=== PATIENT | male | born 1985 | race Caucasian/White ===

== ENCOUNTER 2017-12-13 17:06 | Emergency (ER) | payer OTHER, SELFPAY ==
[2017-12-13 17:07] VITALS: BP 162/98; PULSE 106; RESP 16; TEMP 37.1; O2SAT 98; BMI 22.1
--- NOTE | 2017-12-13 17:14 | CT_ITS ---
STUDY: CT ABDOMEN AND PELVIS WITHOUT CONTRAST REASON FOR EXAM: Male, 32 years old. Right flank pain RADIATION DOSAGE (If Supplied By Facility): CTDIvol = ( 7.57 ) mGy, DLP = ( 368.86 ) mGycm TECHNIQUE: Transaxial images were obtained from the dome of the diaphragm to the symphysis pubis without oral contrast, and without intravenous contrast. Sagittal and coronal images were reconstructed. Individualized dose optimization techniques were used for this CT. COMPARISON: August 06, 2013 FINDINGS: The visualized lung bases are unremarkable. The visualized portions of the heart are within normal limits. Normal liver. Normal gallbladder and extrahepatic biliary system. Normal spleen. Normal pancreas. Normal bilateral adrenal glands. There is no evidence of gross renal obstruction however there does appear to be mild right hydroureter throughout its course to the level of the bladder although without evidence for ureteral calculus or other obstructing lesion. This could be due to reflux or recent passage of calculus. There is no evidence for hydronephrosis or left ureteral calculus. There is no renal mass given limited unenhanced nature of the study. Normal visualized stomach. Mild diffuse ileus pattern with fecal retention in the colon.. Diverticular changes in the descending and sigmoid colon without evidence for acute diverticulitis.. No evidence for acute appendicitis.. Normal abdominal aorta. Normal inferior vena cava. Normal retroperitoneum. Normal urinary bladder. Normal abdominal wall. Lumbar spine demonstrates mild spondylosis CT/Abdomen/Pelvis without Cont IMPRESSION: Mild right hydroureter of uncertain significance and etiology as there is no obstructing calculus or definitive evidence for obstructing lesion at the ureterovesical junction.. This could be due to recent passage of stone or reflux. Clinical correlation recommended Mild ileus with diffuse fecal retention in the colon. Diverticular changes of the descending and sigmoid colon without evidence for acute diverticulitis No evidence for acute appendicitis. Electronically Signed: Madhav De Anda MD at 18:27 EST , Service support ,
--- NOTE | 2017-12-13 17:31 | ED.VISSUMM ---
- ER Visit Summary Date of Service: 12/13/17 Chief Complaint: [] Upper quadrant pain on and off for 3 weeks History of Present Illness: The patient is a 32 M [] stabbing pain to the right upper quadrant for the last 3 weeks nothing makes it better or worse he has been able to eat and drink his bowel and bladder habits have been normal. He has a past history for a gastroenteritis related to being exposed to cow stool, general he has no past history other than chronic back pain for which he takes tramadol His bowel bladder habits have been unremarkable otherwise not been ill no fever no cough Physical Examination: [] His vital signs are unremarkable he is complaining of pain to the right upper quadrant there is some very mild pain here in urban guarding or megaly head neck chest unremarkable the abdomen is otherwise soft upper lower extremities unremarkable the back is unremarkable neurologically he is awake alert moving all 4 Test Results: [] Emergency Department Course and Treatment: [] IV fluids meds screening labs CT Studies are all generally unremarkable see those reports, the CT scan did show questionable right hydroureter no signs of obstruction or tumor or stone etiology of that is unclear see that report All the test results the patient I explained exact etiology of this sharp stabbing pain he has had is unclear he is going to see Dr. 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 Estrada he will be started on Naprosyn bland diet return for change in symptoms Treatment Plan: [] Disposition: [] Stable's home Impression: [] Right upper abdominal flank pain etiology unclear This note was generated with [employer] dictation software. It may contain incorrect words, spelling, and punctuation that were not noted in review of the chart prior to signing ED Disposition - Plan for ED Patient: Chief Complaint: Flank Pain Referrals: Madhav Butt MD [Primary Care Provider] -
[2017-12-13] MEDS: 0.9% Normal Saline 1,000 ML 250 ML IV (17:33)
[2017-12-13] MEDS: Ondansetron 4 MG/2 ML Vial IV (17:34)
--- NOTE | 2017-12-13 17:37 | ED.DCSUM_ITS ---
- ER Visit Summary Date of Service: 12/13/17 Chief Complaint: [] Upper quadrant pain on and off for 3 weeks History of Present Illness: The patient is a 32 M [] stabbing pain to the right upper quadrant for the last 3 weeks nothing makes it better or worse he has been able to eat and drink his bowel and bladder habits have been normal. He has a past history for a gastroenteritis related to being exposed to cow stool, general he has no past history other than chronic back pain for which he takes tramadol His bowel bladder habits have been unremarkable otherwise not been ill no fever no cough Physical Examination: [] His vital signs are unremarkable he is complaining of pain to the right upper quadrant there is some very mild pain here in urban guarding or megaly head neck chest unremarkable the abdomen is otherwise soft upper lower extremities unremarkable the back is unremarkable neurologically he is awake alert moving all 4 Test Results: [] Emergency Department Course and Treatment: [] IV fluids meds screening labs CT Studies are all generally unremarkable see those reports, the CT scan did show questionable right hydroureter no signs of obstruction or tumor or stone etiology of that is unclear see that report All the test results the patient I explained exact etiology of this sharp stabbing pain he has had is unclear he is going to see Dr. 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 Estrada he will be started on Naprosyn bland diet return for change in symptoms Treatment Plan: [] Disposition: [] Stable's home Impression: [] Right upper abdominal flank pain etiology unclear This note was generated with [employer] dictation software. It may contain incorrect words, spelling, and punctuation that were not noted in review of the chart prior to signing ED Disposition - Plan for ED Patient: Chief Complaint: Flank Pain Referrals: Madhav Butt MD [Primary Care Provider] -
[2017-12-13 17:52] LABS: Absolute Lymphocyte Count 1.93 X10^3/ul (0.83-4.51); Absolute Neutrophil Count 5.5 X10^3/uL (2.0-7.7); Basophil# 0.03 X10^3/uL; Basophil% 0.4 % (0-1); Eosinophil# 0.05 X10^3/uL; Eosinophils% 0.6 % (0-5); Hematocrit 44.1 % (40-54); Hemoglobin 14.7 g/dl (13.0-16.5); Lymphocyte # 1.93 X10^3/ul (4.0); Lymphocyte % 23.4 % (19-41); Mean Corp Hgb Conc 33.3 g/gl (32-36); Mean Corpuscular Hgb 29.5 pg (27.0-32.0); Mean Corpuscular Volume 88.4 fL (80-94); Mean Platelet Vol. 9.1 fl (6.2-12.0); Monocyte# 0.76 X10^3/uL; Monocyte% 9.2 % (0-10); Neutrophil # 5.46 X10^3/uL (2.7-7.7); Neutrophil % 66.2 % (47-70); Platelet Count 239 K/mm3 (150-450); RBC Distribution Width CV 12.3 % (11.6-14.6); RBC Distribution Width SD 39.1 fl (35.1-43.9); Red Blood Count 4.99 M/mm3 (4.6-6.2); White Blood Count 8.3 K/mm3 (4.4-11.0)
[2017-12-13 17:53] LABS: POSITIVE COUNT NO; POSITIVE DIFFERENTIAL NO; POSITIVE MORPHOLOGY NO
[2017-12-13 18:10] LABS: AST(SGOT) 16 U/L (15-37); Alanine Aminotransfer ALT/SGPT 35 U/L (16-61); Albumin, Serum 4.2 g/dL (3.2-5.0); Alkaline Phosphatase 81 U/L (45-117); BUN 16 mg/dL (7-18); BUN/Creat Ratio 17.8 RATIO (10-20); Calcium,Total 8.6 mg/dL (8.5-10.1); Cholesterol 187 mg/dL (200); EST Glomerular Filtration Rate 102 mL/min (>60); Est Glom Filt Rate - Afr Amer 124 mL/min (>60); Estimated Creatinine Clearance 128.08 ml/min; Globulin 2.9 g/dL (2.2-4.2); Glucose 117 mg/dL (74-106); Protein, Total 7.1 g/dL (6.4-8.2); Triglycerides 50 mg/dL
[2017-12-13 18:11] LABS: Anion Gap 8 (5-15); Chloride 103 mmol/L (98-107); High Density Lipoprotein 78 mg/dL; Potassium 3.5 mmol/L (3.5-5.1); Sodium Level 139 mmol/L (136-145); Very Low Density Lipoprotein 10 mg/dL (5-40)
[2017-12-13] MEDS: 0.9% Normal Saline 1,000 ML 999 ML IV (18:46)
[2017-12-13 19:08] LABS: Bacteria 0 SEEN /hpf (None Seen); Mucous, Urine 0 SEEN /hpf (<or=2+); Red Blood Cells-Urine 0 SEEN /hpf (0-5); Squamous Epithelial Cells - UA 0 SEEN /hpf (0-5); White Blood Cells 0 SEEN /hpf (0-5)
[2017-12-13 19:12] LABS: Color, Urine Straw (Yellow); Glucose, Dipstick Normal (Normal); Ketone-Dipstick Negative (Negative); Leukocyte Esterase-Dipstick Negative /ul (Negative); Nitrite-Dipstick Negative (Negative); Occult Blood-Urine Negative /ul (Negative); Protein-Dipstick Negative (Negative); Urine Bilirubin Dipstick Negative (Negative); Urine Clarity Clear (Clear); Urine Urobilinogen Normal (Normal); Urine pH 6.5 (5.0 - 8.0)
--- NOTE | 2017-12-13 19:51 | ED.DEP ---
ED Disposition - Plan for ED Patient: Chief Complaint: Flank Pain Instructions: ED Flank Pain Uncertain Cause Prescriptions: Naproxen [Naprosyn] 500 mg PO BID PRN #20 tab Referrals: Madhav Butt MD [Primary Care Provider] -
[2017-12-13 20:06] VITALS: BP 153/97; PULSE 89; RESP 16; O2SAT 99
== END 2017-12-13 20:07 | disposition home or self-care (01) ==
LOC: ED 17:47
PROVIDERS: Emergency Provider Emergency Medicine; Family Provider Family Medicine; PCP Family Medicine
DX: R10.11 Right upper quadrant pain (principal); M54.9 Dorsalgia, unspecified; G89.29 Other chronic pain; Z87.19 Personal history of other diseases of the digestive system
CPT/HCPCS: 74176; 80048; 80061; 80076; 81001; 85025; 96361; 96374; 96375; 99282; J7030; A4216; J2405

== ENCOUNTER 2018-04-05 10:03 | Day surgery (SDC) | payer OTHER, SELFPAY ==
[2018-04-05 10:22] VITALS: BP 138/82; PULSE 78; RESP 16; TEMP 37; O2SAT 98; BMI 21.3
--- NOTE | 2018-04-05 11:45 | RAD_ITS ---
STUDY: X-RAY - LUMBAR SPINE REASON FOR EXAM: Male, 32 years old. Spinal cord stimulator insertion. TECHNIQUE: 4 cone-down view(s) of the lumbar spine were obtained intraoperatively. COMPARISON: None FINDINGS: Fluoroscopic services provided for spinal cord stimulator insertion. RAD/Lumbar Spine 2 or 3 Views IMPRESSION: Fluoroscopic services provided for spinal cord stimulator placement. Electronically Signed: Darryl Ayala MD at 14:21 EDT Tel [phone], Service support ,
[2018-04-05] MEDS: Bupiv/Epi 0.5% Mpf 30 ML Vial (12:30)
[2018-04-05 13:41] VITALS: BP 115/77; BP 132/82; PULSE 86; RESP 18; TEMP 36.2; O2SAT 100
[2018-04-05 13:45] VITALS: BP 132/82; BP 133/95; PULSE 91; RESP 18; O2SAT 100
[2018-04-05 13:50] VITALS: BP 114/93; BP 132/82; PULSE 74; RESP 18; O2SAT 99
[2018-04-05 13:56] VITALS: BP 121/96; BP 132/82; PULSE 71; RESP 18; TEMP 36.3; O2SAT 99
[2018-04-05 15:05] VITALS: BP 132/82
== END 2018-04-05 15:05 | disposition home or self-care (01) ==
LOC: SDC 10:04 → AC 10:05
PROVIDERS: Family Provider Family Medicine; PCP Family Medicine; Visit Provider Anesthesiology Pain Medicine
PROC: (CPT 63685; principal; 2018-04-05 11:30)
DX: M96.1 Postlaminectomy syndrome, not elsewhere classified (principal); M54.9 Dorsalgia, unspecified; M79.606 Pain in leg, unspecified; F17.220 Nicotine dependence, chewing tobacco, uncomplicated
CPT/HCPCS: 63650 ×2; 63685; 95972; 72100; 76000; J7120

== ENCOUNTER → 2018-10-16 11:04 | Outpatient (CLI) | payer OTHER, SELFPAY ==
--- NOTE | 2018-10-16 11:12 | RAD_ITS ---
STUDY: X-RAY - CERVICAL SPINE REASON FOR EXAM: Male, 33 years old. NECK PAIN, HEADACHES TECHNIQUE: 2 view(s) of the cervical spine were obtained. COMPARISON: None FINDINGS: There is straightening of the normal cervical lordosis. There is multi-level endplate spondylosis. There is minimal multi-level degenerative disc disease with multilevel disc space narrowing. The soft tissue structures are unremarkable. RAD/Cerv Spine 2 or 3 Views IMPRESSION: Mild degenerative changes of the spine. Electronically Signed: Dudley Lipscomb MD at 8:14 EST Tel , Service support ,
--- NOTE | 2018-10-16 11:22 | RAD_ITS ---
STUDY: X-RAY - LUMBAR SPINE REASON FOR EXAM: Male, 33 years old. CHRONIC LOW BACK PAIN; H/O HERNIATION L5-S1; PAIN PUMP TECHNIQUE: 3 view(s) of the lumbar spine were obtained. COMPARISON: April 05, 2018 FINDINGS: There is straightening of the normal lumbar lordosis. There is a neurostimulator with electrodes at the thoracic level and cut off on this examination. Again noted is a moderate compression at T12 There is multilevel endplate spondylosis of the lumbar vertebrae. There is multi-level degenerative disc disease with multi-level disc space narrowing. There is stable moderate disc space narrowing at L5/S1 The soft tissue structures are unremarkable. RAD/Lumbar Spine 2 or 3 Views IMPRESSION: Degenerative changes of the spine. Electronically Signed: Dudley Lipscomb MD at 8:03 EST Tel , Service support ,
== END ==
LOC: RAD 11:07
PROVIDERS: Family Provider Family Medicine; PCP Family Medicine; Referring Provider Anesthesiology Pain Medicine; Visit Provider Anesthesiology Pain Medicine
DX: M54.2 Cervicalgia (principal); M54.9 Dorsalgia, unspecified
CPT/HCPCS: 72040; 72100

== ENCOUNTER 2019-07-31 14:00 | Outpatient (RCR) | payer OTHER, SELFPAY ==
--- NOTE | 2019-06-23 16:00 | HP.PTEVAL_ITS ---
Patient's Visit Information ANDRES CASTRO is a 34 year old M referred to Physical Therapy by Rubia Velazco MD with a diagnosis of LBP with LE radiculopathy. Date of Evaluation: 06/23/19 Physical Therapist: Luis Saab, PT, ATC - Visit Plan Frequency: 2-3x /Week Duration: 4 Weeks Plan: Core stab ex's, B LE strengthening, postural education, nustep, and HEP - Subjective Findings: Back surgery in 2014l has strimulator; surgery for heriation. L5, S1. Pain goes all the way down to ankle. Loses feeling in R leg; severe; @ rest: 4,5/10; @ worst 10/10. Pain is worse bending over, walking. Pain wakes up pt. Meloxicam, tramadol. Pickup things; limitations in picking up objects. MRI done; shows up, goes away. - Pain LBP Pain Intensity (Out of 10): 5 Pain Intensity Range: 10 - Objective Neuro: B LE sensation is WNL to lgiht touch. B patellar reflex= 2/3. MMT: B LE 4/5 throughout. L/S ROM: severely limited with L/S extension. All other ranges are moderately limited. Repeated movements: REIL peripaheralized sx's into R LE. SKTC and DKTC had no effect - Goals Goal 1:: Decrease LBP x 25-50% to aid with sleep Goal Time Frame: 4-6 Weeks Goal 2:: Increase B LE strength x 1 grade to aid with IADL's Goal Time Frame: 4-6 Weeks Goal 3:: Increase L/S ROM x 1 grade in all planes to aid with IADL's Goal Time Frame: 4-6 Weeks Goal 4:: I with HEP Goal Time Frame: 4-6 Weeks - Rehabilitation Potential Physical Therapy Diagnosis: Pt has LBP, limited L/S ROM, and R LE radiculopathy secondary to deg changes in the L/S Rehabilitation Potential: Good - Anticipated Interventions Patient/Client Instruction: Educate patient on: Condition, Plan of Care For the Purpose of:: To improve self management Therapeutic Exercise to Include: Strength training, Power training, Body mechanics, Postural training, Gait and locomotor training, Dynamic Lumbar Stabilization For the Purpose of:: To decrease pain, To increase ROM, To improve muscle performance and motor function Cryotherapy (ice pack, ice massage): Yes For the Purpose of:: To decrease pain Thank you for the opportunity to evaluate your patient. For Medicare and Medicare HMO plans, please review the plan of care and approve it. It will need to be FAXED BACK to us at [phone] for Medicare purposes. For Medicare only, by signing this I certify the plan of care. Please let me know if there are questions or concerns regarding this plan of care. Physician S ignature: Date:
--- NOTE | 2019-07-31 14:22 | HP.PTDCSUM ---
HP - PT D/C Summary It has been my pleasure to treat ANDRES CASTRO under orders from Rubia Velazco MD, for the diagnosis of LBP with LE radiculopathy for a total of 10 visit(s). Discharge Date: Please see the following information for a summary of their discharge status. - Subjective Subjective: I am achey today - Pain LBP Pain Intensity (Out of 10): 4 - Overall Improvement % Improvement: 25 - Objective Objective/Function: LBP is relatively unchanged. L/S ROM is limited by pain. LE strength is grossly 5/5 throughout. I with HEP - Goals Goal 1:: Decrease LBP x 25-50% to aid with sleep Goal Progress: Not Progressing Goal 2:: Increase B LE strength x 1 grade to aid with IADL's Goal Progress: Progressing Goal 3:: Increase L/S ROM x 1 grade in all planes to aid with IADL's Goal Progress: Not Progressing Goal 4:: I with HEP Goal Progress: Goal Met - Plan Plan: Discontinue, RTD - D/C Information If there are questions or concerns regarding this patient's physical therapy, please feel free to call me at [phone]. Thank you for the referral of this patient. Sincerely, Luis Saab, PT, ATC
== END 2019-07-31 14:51 | disposition home or self-care (01) ==
LOC: PT 14:00
PROVIDERS: Family Provider Family Medicine; PCP Family Medicine; Referring Provider Anesthesiology Pain Medicine; Visit Provider Anesthesiology Pain Medicine
DX: M54.9 Dorsalgia, unspecified (principal); M79.606 Pain in leg, unspecified
CPT/HCPCS: 97110; 97161; 97530

== ENCOUNTER → 2019-11-25 11:45 | Outpatient (CLI) | payer OTHER, SELFPAY ==
--- NOTE | 2019-11-25 11:52 | RAD_ITS ---
PROCEDURE: LUMBAR MYELOGRAM DATE OF EXAMINATION: November 25, 2019. INDICATION: Male, 34 years old. Low back pain. PHYSICIAN: Darryl Ayala M.D. CONSENT: The patient''s history and physical findings were reviewed. The lumbar myelogram procedure was discussed with the patient prior to signing a consent. SEDATION: Local anesthesia with 3 mL of 1% lidocaine was used. FLUOROSCOPY TIME (if supplied): (1:18) minutes/seconds Injection Information: 15 mL of Isovue-M 200 Number of images obtained: 4 TECHNIQUE: Digital fluoroscopy was used to identify a safe approach for the lumbar myelogram. The back was prepped and draped in usual fashion. Local anesthesia was utilized. Under fluoroscopic guidance a 22-gauge spinal needle was inserted into the spinal canal at the L4-5 level. Clear spinal fluid was seen. 15 mL of Isovue 200 M was injected into the spinal canal. There is good opacification of the spinal fluid. The nerve root sheaths are asymmetrically identified. There is no extradural defects. Spinal cord stimulator device is visualized. The patient tolerated the procedure well. A CT scan will follow. RAD/Lumbar Myelogram IMPRESSION: Normal lumbar myelogram. Electronically Signed: Darryl Ayala, at 13:09 EST , Service support ,
--- NOTE | 2019-11-25 11:53 | CT_ITS ---
STUDY: CT LUMBAR SPINE WITH INTRATHECAL CONTRAST (LUMBAR CT MYELOGRAM) REASON FOR EXAM: Male, 34 years old. Lumbar radiculopathy, myelogram RADIATION DOSAGE (If Supplied By Facility): CTDIvol = ( 13.82 ) mGy, DLP = ( 477.45 ) mGycm TECHNIQUE: Transaxial images were obtained from the T12 vertebra through the S1 vertebral level, following intrathecal administration of 15 ml of Isovue-M 200 contrast material, performed by Dr. Laguna. Please refer to this physicians technical notes for procedural details. Coronal and sagittal reconstructions were obtained. Individualized dose optimization techniques were used for this CT. COMPARISON: Comparison is made with mammogram done earlier in the day. FINDINGS: Normal lumbar lordosis. There is no substantial scoliosis. Normal vertebrae of the lumbar spine. Spinal cord stimulator is in situ. There is dependent layering of contrast material in the distal thecal sac. The conus medullaris terminates in a normal position at the L1-L2 level. There is no demonstrated cauda equina nerve root abnormality or intraspinal mass. L1-2: Normal endplates. Normal disc height and morphology. Normal bilateral facet joints. Normal central canal and bilateral lateral recesses. Normal bilateral intervertebral neural foramina. L2-3: Normal endplates. Normal disc height and morphology. Normal bilateral facet joints. Normal central canal and bilateral lateral recesses. Normal bilateral intervertebral neural foramina. L3-4: Normal endplates. Normal disc height and morphology. Normal bilateral facet joints. Normal central canal and bilateral lateral recesses. Normal bilateral intervertebral neural foramina. L4-5: Normal endplates. Normal disc height and morphology. Normal bilateral facet joints. Normal central canal and bilateral lateral recesses. Normal bilateral intervertebral neural foramina. L5-S1: Moderate degree of disc space narrowing and degeneration with anterior spondylosis. Normal visualized sacroiliac joints. Normal visualized paraspinous soft tissue structures. CT/Spine Lumbar WITH Contrast IMPRESSION: No significant abnormality is seen. Electronically Signed: Darryl Ayala, at 14:00 EST , Service support ,
[2019-11-25 12:02] VITALS: BP 139/90; PULSE 80; RESP 16; TEMP 36.8; O2SAT 98; BMI 20.5
[2019-11-25 13:35] VITALS: BP 145/82; PULSE 80; RESP 14; O2SAT 98
== END ==
LOC: RAD 11:47
PROVIDERS: Family Provider Family Medicine; PCP Family Medicine; Referring Provider Physician Assistant; Visit Provider Physician Assistant
DX: M51.16 Intervertebral disc disorders with radiculopathy, lumbar region (principal)
CPT/HCPCS: 62304; 72132; Q9965

== ENCOUNTER → 2020-04-13 11:47 | Outpatient (CLI) | payer OTHER, SELFPAY ==
[2019-11-25 12:02] VITALS: BMI 20.5
[2020-04-13 12:28] LABS: Amphetamine Urine VISTA NEGATIVE (<1000 ng/mL); Barbiturate Urine VISTA NEGATIVE (< 200 ng/mL); Benzodiazepine Urine VISTA NEGATIVE (< 200 ng/mL); Cocaine Urine VISTA NEGATIVE (< 300 ng/mL); Ecstacy Urine VISTA NEGATIVE (< 500 ng/mL); Methadone Urine VISTA NEGATIVE (< 300 ng/mL); PCP Urine VISTA NEGATIVE (< 25 ng/mL); THC Urine VISTA NEGATIVE (< 50 ng/mL); Vista UDS pH Range 7
== END ==
PROVIDERS: PCP Family Medicine; Referring Provider Anesthesiology Pain Medicine; Visit Provider Anesthesiology Pain Medicine
DX: F11.20 Opioid dependence, uncomplicated (principal)
CPT/HCPCS: 80307

== ENCOUNTER 2020-05-09 10:21 | Emergency (ER) | payer OTHER, SELFPAY ==
[2019-11-25 12:02] VITALS: BMI 20.5
[2020-05-09 10:22] VITALS: BP 141/87; PULSE 102; RESP 16; TEMP 36.7; O2SAT 95; BMI 20.5
[2020-05-09 10:25] VITALS: BP 141/87; PULSE 102; RESP 16; TEMP 36.7; O2SAT 95
--- NOTE | 2020-05-09 10:42 | CT_ITS ---
STUDY: CT ABDOMEN AND PELVIS WITH CONTRAST REASON FOR EXAM: Male, 34 years old. Diarrhea and low abdominal pain x 4 days. Spinal stimulator RADIATION DOSAGE (If Supplied By Facility): CTDIvol = ( 12.48 ) mGy, DLP = ( 794.02 ) mGycm TECHNIQUE: Transaxial images were obtained from the dome of the diaphragm to the symphysis pubis without oral contrast. IV 100mL Isovue-370 was administered. Sagittal and coronal images were reconstructed. Individualized dose optimization techniques were used for this CT. COMPARISON: 12/13/2017. FINDINGS: The visualized portions of lung bases demonstrate small granuloma in the left lower lobe and minimal atelectasis or scarring. The visualized portions of the heart are within normal limits. Normal liver. Normal gallbladder and extrahepatic biliary system. Normal spleen. Normal pancreas. Normal bilateral adrenal glands. Normal right kidney. Mild prominence of the left renal pelvis is again seen likely due to extrarenal pelvis. There is no evidence of hydronephrosis. Normal visualized stomach. The small bowel loops are normal in caliber. There is however fecal-like materials in small bowel loops. There is fecal retention. There is thickening of the descending colon and sigmoid colon extending to the rectum. There is no evidence of acute diverticulitis. The appendix is visualized and appears normal. Normal abdominal aorta. Normal inferior vena cava. Normal retroperitoneum. Normal urinary bladder. Pain management battery is seen in the right buttock region with wires extending to the lower thoracic spine. The osseous structures are unchanged. CT/Abdomen/Pelvis W IV Cont ONLY IMPRESSION: 1. Thickening of the colon extending from the descending colon to the rectum consistent with colitis. 2. No evidence of small bowel obstruction or acute appendicitis. Electronically Signed: Jerome Pickett MD at 13:28 EDT Tel , Service support ,
--- NOTE | 2020-05-09 10:43 | ED.VIS.GI ---
History of Present Illness Chief Complaint: Diarrhea Informant: Patient - Abdominal Pain/Flank Pain Onset: Days - 2 Context: Gradual Onset Timing: Continuous Quality: Cramping Location: - - lower/mid abd, nonlateralizing Current Severity: Moderate Maximum Severity: Moderate Worsened by: Nothing Relieved by: Nothing - Nausea/Vomiting/Emesis GI Symptom: Negative for: Nausea, Vomiting - Diarrhea/Melena/Hematochezia GI Symptom: Diarrhea. Negative for: Melena, Hematochezia Associated Symptoms: Negative for: Dysuria, Frequency, Hematuria, Urgency Narrative: Patient presenting with diffuse abdominal cramping and a lot of diarrhea for the past 2 days. More than 10 times per day. He states he went every hour overnight all night and ~like 7 this morning. It is nonbloody, non-melanotic. Watery. The last time he had this, it was 7 or 8 years ago, they saw what appeared to be a mass on the CT so they admitted him, he had a colonoscopy in the hospital, it ended up being colitis and not a mass. He was placed on antibiotics and it improved. He denies any recent antibiotics for anything. 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 Denies any recent camping or drinking ground water. No known sick contacts with similar symptoms, or recent COVID-19 infection contact that he knows of. He lives with his grandfather who is not ill with any of these symptoms. Prior similar symptoms: Yes - See above Recent Illness/Hospitalization: No - Past Medical History (1) Chronic low back pain with sciatica Status: Chronic Past Medical History - Allergies and Home Meds Allergies/Adverse Reactions: Allergies amoxicillin [Amoxicillin] Allergy (Verified 05/09/20 10:21) Rash hydrocodone [From Vicodin] Allergy (Verified 05/09/20 10:21) Shortness of breath,rash Primary Care Physician: Mike Estrada MD [Primary Care Provider] - Surgical History: - - Spinal stimulator placement Lives: With Family Smoking Status: Never smoker Drugs: None Review of Systems General: Reports: Fever - once, yest, 102, Malaise. Denies: Chills, Sweats Eyes: Denies: Visual changes - bilaterally, Diplopia ENT: Denies: Rhinorrhea, Sore throat Cardiovascular: Denies: Chest pain, Palpitations Respiratory: Denies: Dyspnea, Cough, Dyspnea on exertion Gastrointestinal: Reports: Abdominal pain, Diarrhea. Denies: Nausea, Vomiting, Melena, Hematochezia Genitourinary: Denies: Dysuria, Hematuria, Frequency Musculoskeletal: Denies: Back pain, Swelling, Extremity Pain Skin: Denies: Rash, Wounds Neurological: Denies: Headache, Weakness, Numbness Physical Exam Vital Signs/Narrative: Vital Signs Temp Pulse Resp BP Pulse Ox 05/09/20 10:25 98.1 F 102 H 16 141/87 H 95 05/09/20 10:22 98.1 F 102 H 16 141/87 H 95 Inital Vital Signs reviewed: Yes General: Well nourished, Well developed, No Acute Distress Head: Normocephalic, Atraumatic Eyes: Perrl, EOMI ENT: Moist mucous membranes, No rhinorrhea Neck: Supple, Nontender Cardiovascular: Regular rate, Regular rhythm, No murmurs Respiratory: No distress, CTA bilaterally, Chest nontender Abdomen: Soft, Nondistended, Normal bowel sounds, No masses, Tender - Across lower abdomen, worse in left lower quadrant, no other areas of tenderness. Negative for: Guarding, Rebound tenderness Back: Nontender, Normal Inspection. Negative for: CVA tenderness Extremities: Nontender, No edema. Negative for: Calf Tenderness Skin: Normal color, No rash, No Trauma Neurological: Alert, Oriented x3, Cranial nerves II-XII grossly intact, Normal Strength, Normal Sensation, Normal Gait Psychological: Normal affect, Normal Mood Diagnostic/Tx/Re-eval Impressions Abdomen/Pelvis CT 05/09/20 10:42 IMPRESSION: 1. Thickening of the colon extending from the descending colon to the rectum consistent with colitis. 2. No evidence of small bowel obstruction or acute appendicitis. Electronically Signed: Jerome Pickett MD at 13:28 EDT Tel , Service support , 05/09/20 10:42 Abdomen/Pelvis W IV Cont ONLY [CT] Stat Laboratory Results 05/09/20 05/09/20 11:03 11:03 WBC 6.8 RBC 5.23 Hgb 15.2 Hct 45.2 MCV 86.4 MCH 29.1 MCHC 33.6 RDW Std Deviation 37.4 RDW Coeff of Felicita 11.9 Plt Count 186 MPV 9.0 Immature Gran % (Auto) 0.100 Neut % (Auto) 68.7 Lymph % (Auto) 16.0 L [place] % (Auto) 14.7 H Eos % (Auto) 0.1 Baso % (Auto) 0.4 Absolute Neuts (auto) 4.7 Absolute Lymphs (auto) 1.09 Nucleated RBC % 0 Sodium 138 Potassium 3.8 Chloride 105 Carbon Dioxide 27.0 Anion Gap 6 BUN 8 Creatinine 0.89 Estim Creat Clear Calc 117.79 Est GFR (MDRD) Af Amer 124 Est GFR (MDRD) Non-Af 102 BUN/Creatinine Ratio 9.0 L Glucose 90 Calcium 8.6 Total Bilirubin 0.50 AST 9 L ALT 24 Alkaline Phosphatase 111 Total Protein 6.8 Albumin 3.7 Globulin 3.1 Albumin/Globulin Ratio 1.2 Lipase 87 - Medical Decision Making As above blood work is unremarkable including lack of leukocytosis, or liver enzyme elevation. He also appears to be remarkably hydrated for his much diarrhea as he has been having, he must of been drinking more fluids than he thought. He was treated with IV fluids, Bentyl, Toradol. This helped his discomfort. CT does show an area of focal colitis in the descending colon, no sign of a mass at this time. He can be treated as an outpatient, given his history I am happy to try him on antibiotics empirically, I will place him on just a 5-day course of Flagyl and Cipro, to see if that helps with this, I am limiting the duration of the treatment due to the possibility that these medications can make his diarrhea worse, which the patient understands. We are getting him a snack to eat in order to try to stimulate a gastrocolic reflex and have him provide a stool specimen prior to discharge, he will also be discharged on dicyclomine and he is comfortable with this plan of following up. ED Disposition - Plan for ED Patient: Disposition: Home or Assisted Living Diagnosis: Colitis Instructions: ED Gastroenteritis Report Pend Prescriptions: Dicyclomine HCl [Bentyl] 20 mg PO Q6H PRN #20 cap PRN Reason: abdominal pain Transmission Status: Pending to [facility] Ciprofloxacin [Cipro] 500 mg PO BID #10 tab Transmission Status: Pending to [facility] metroNIDAZOLE [Flagyl] 500 mg PO BID #10 tab Transmission Status: Pending to [facility] Referrals: Eh Sherman MD [STAFF PHYSICIAN] - 1-2 Weeks (call for appt for poss follow up colonoscopy) Mike Estrada MD [Primary Care Provider] - 3-5 Days if not improving (follow up with your PCP)
[2020-05-09] MEDS: Ketorolac 30 MG/ML Syringe IV (11:00)
[2020-05-09] MEDS: Dicyclomine 20 MG/2 ML Vial IM (11:00)
[2020-05-09] MEDS: 0.9% Normal Saline 1,000 ML 1000 ML IV (11:00)
[2020-05-09 11:09] LABS: Absolute Lymphocyte Count 1.09 X10^3/uL (0.83-4.51); Absolute Neutrophil Count 4.7 X10^3/uL (2.0-7.7); Basophil# 0.03 X10^3/uL; Basophil% 0.4 % (0-1); Eosinophil# 0.01 X10^3/uL; Eosinophils% 0.1 % (0-5); Hematocrit 45.2 % (40-54); Hemoglobin 15.2 g/dL (13.0-16.5); Lymphocyte # 1.09 X10^3/ul (4.0); Mean Corp Hgb Conc 33.6 g/dL (32-36); Mean Corpuscular Hgb 29.1 pg (27.0-32.0); Mean Corpuscular Volume 86.4 fL (80-94); Monocyte% 14.7 % (0-10); NRBC Flagged by Analyzer 0 % (0-5); Neutrophil # 4.66 X10^3/uL (2.7-7.7); Neutrophil % 68.7 % (47-70); Platelet Count 186 K/mm3 (150-450); RBC Distribution Width CV 11.9 % (11.6-14.6); RBC Distribution Width SD 37.4 fl (35.1-43.9); Red Blood Count 5.23 M/mm3 (4.6-6.2); White Blood Count 6.8 K/mm3 (4.4-11.0)
[2020-05-09 11:31] LABS: ALB/GLOB Ratio 1.2 RATIO (0.9-2.4); AST(SGOT) 9 U/L (15-37); Alanine Aminotransfer ALT/SGPT 24 U/L (16-61); Albumin, Serum 3.7 g/dL (3.2-5.0); Alkaline Phosphatase 111 U/L (45-117); Anion Gap 6 (5-15); BUN 8 mg/dL (7-18); Calcium,Total 8.6 mg/dL (8.5-10.1); Chloride 105 mmol/L (98-107); Creatinine, Serum 0.89 mg/dL (0.70-1.30); EST Glomerular Filtration Rate 102 mL/min (>60); Est Glom Filt Rate - Afr Amer 124 mL/min (>60); Estimated Creatinine Clearance 117.79 ml/min; Globulin 3.1 g/dL (2.2-4.2); Glucose 90 mg/dL (74-106); Lipase 87 U/L (73-393); Potassium 3.8 mmol/L (3.5-5.1); Protein, Total 6.8 g/dL (6.4-8.2); Sodium Level 138 mmol/L (136-145)
[2020-05-09 12:21] VITALS: BP 129/86; PULSE 82; RESP 18; O2SAT 98
[2020-05-09] MEDS: Ciprofloxacin 500 MG Tablet PO (14:02)
[2020-05-09] MEDS: metroNIDAZOLE 500 MG Tablet PO (14:02)
--- NOTE | 2020-05-10 12:48 | ED.RN ---
CALLED AND INFORMED PT OF STOOL PANEL RESULTS. PT VERBALIZED UNDERSTANDING
[2020-05-11 16:57] LABS: Giardia Lamblia, Stool EIA Negative (Negative)
== END 2020-05-09 14:04 | disposition home or self-care (01) ==
PROVIDERS: Emergency Provider Emergency Medicine; PCP Family Medicine
DX: K52.9 Noninfective gastroenteritis and colitis, unspecified (principal); M54.5 Low back pain; G89.29 Other chronic pain
CPT/HCPCS: 74177; 80053; 83690; 85025; 87329; 87506; 96361; 96372; 96374; 99284; J7030; Q9967; A4216

== ENCOUNTER 2020-05-09 19:21 | Emergency (ER) | payer OTHER, SELFPAY ==
[2020-05-09 10:22] VITALS: BMI 20.5
[2020-05-09 19:22] VITALS: BP 141/81; PULSE 104; RESP 18; TEMP 37.2; BMI 22.4
--- NOTE | 2020-05-09 19:59 | ED.VISSUMM ---
- ER Visit Summary Date of Service: 05/09/20 Chief Complaint: Abdominal pain seen earlier today. History of Present Illness: The patient is a 34 M history of prior colitis. Seen earlier today and worked up. Labs and CAT scan were done earlier today. Patient was discharged to home on both Cipro and Flagyl also Ultram for pain. He says not controlling his pain he want something stronger. He was admitted one other time for this but understands he does not need to be admitted at this time. Physical Examination: Young male no acute distress vital signs stable afebrile. H EENT exam unremarkable. Moist and pharynx. Neck nontender no lymphadenopathy. Lungs clear to auscultation bilaterally. Heart regular rhythm no murmur. Rate about 100. Abdomen soft. Nondistended. Normal bowel sounds. No peritoneal signs. Mildly tender. No hernia or mass. No signs of obstruction. Positive bowel sounds. Patient moving all 4 extremities. Calves are nontender without edema. Back nontender. Neurologically is awake alert. Test Results: I reviewed the patient's test from earlier today. They were basically unremarkable. He also had a CAT scan are reviewed. Emergency Department Course and Treatment: Discussed with the patient and his he understands he does not need to be admitted. He is not asking for that. He was just hoping for something more for pain. States when he was seen by general surgeon in the past he placed him on Vicodin which he states he had a rash to. Treatment Plan: Percocet for pain. Outpatient follow-up. Continue his current antibiotics. Disposition: discharge Impression: Acute abdominal pain with a history of colitis This note was generated with [employer] dictation software. It may contain incorrect words, spelling, and punctuation that were not noted in review of the chart prior to signing ED Disposition - Plan for ED Patient: Referrals: Mike Estrada MD [Primary Care Provider] -
--- NOTE | 2020-05-09 20:05 | ED.DEP ---
ED Disposition - Plan for ED Patient: Prescriptions: Oxycodone HCl/Acetaminophen [Percocet 5/325] 1 tab PO Q6H PRN PRN 4 Days #14 tab PRN Reason: Pain Or Fever Prescription Printed Referrals: Mike Estrada MD [Primary Care Provider] - Additional Instructions: Follow prior instructions. Percocet for pain. Up with your primary care physician and/or Dr. Ezekiel Sherman
[2020-05-09] MEDS: oxyCODONE 5 MG Tablet 10 MG PO (20:26)
== END 2020-05-09 20:29 | disposition home or self-care (01) ==
LOC: ED 19:44
PROVIDERS: Emergency Provider Emergency Medicine; PCP Family Medicine
DX: R10.9 Unspecified abdominal pain (principal); K52.9 Noninfective gastroenteritis and colitis, unspecified; Z79.899 Other long term (current) drug therapy
CPT/HCPCS: 99283

== ENCOUNTER 2021-09-10 13:02 | Emergency (ER) | payer OTHER, SELFPAY ==
[2021-09-10 13:04] VITALS: BP 136/85; PULSE 97; RESP 17; TEMP 37.3; O2SAT 97; BMI 22.8
--- NOTE | 2021-09-10 13:16 | EX.ED.DYSGE1 ---
HPI History of Present Illness Chief Complaint: Cough Informant: patient Narrative Narrative: 36-year-old male presenting to the emergency department with cough and fever. Patient got sick 6 days ago. He notes diarrhea nausea decreased appetite headache right-sided sore throat and chest soreness. He notes he has been able to get his fever down to around 99. He denies any significant long-term medical problems. He is non-smoker. He is not Covid vaccinated [facility] Medical History no medical history no medical history Home Medications NK 09/10/21 [History Last Taken Unknown] Allergy/AdvReac Type Severity Reaction Status Date / Time amoxicillin [Amoxicillin] Allergy Rash Verified 09/10/21 13:02 hydrocodone [From Vicodin] Allergy Shortness Verified 09/10/21 13:02 of breath,rash Surgical History (Updated 09/10/21 @ 13:31 by Johana Villa) Previous back surgery Social History (Updated 09/10/21 @ 13:[address] Zachary Almodovar, DO) Smoking Status: Never smoker substance use type: does not use ROS ROS ED Constitutional Constitutional ED: Reports chills and fever(s); Denies weight loss Eyes Eyes: Denies change in vision or diplopia ENT ENT ED: Reports rhinorrhea and sore throat; Denies ear pain Cardiovascular Cardiovascular: Denies chest pain, orthopnea, palpitations or racing heartbeat Respiratory/Chest Respiratory/Chest: Reports cough and dyspnea; Denies orthopnea Gastrointestinal Gastrointestinal: Reports diarrhea and nausea; Denies abdominal pain or vomiting Genitourinary Genitourinary ED: Denies dysuria, hematuria or urinary frequency Musculoskeletal Musculoskeletal: Reports myalgias; Denies arthralgias Integumentary Denies abscess or rash Neurologic Neurologic: Reports headache(s); Denies weakness Psychiatric Psychiatric: Denies anxiety, depression, suicidal ideation or suicidal thoughts Endocrine Endocrinology: Denies polydipsia, polyphagia or polyuria Allergic/Immunologic Allergic/Immunologic ED: Denies mouth swelling, tongue swelling or urticaria EXAM Physical Exam Const Vital Signs: 09/10/21 13:04 09/10/21 13:31 Temperature 99.2 F H Temperature Source Oral Pulse Rate 97 Respiratory Rate 17 Respiratory Effort Normal Respiratory Depth Normal Respiratory Pattern Normal Blood Pressure 136/85 H Blood Pressure Mean 102 Pulse Ox 97 Oxygen Delivery Method Room Air Positive well nourished and well developed General Appearance ED: well developed HEENT Reports normocephalic, head/scalp atraumatic and moist mucous membranes Eyes PERRL and EOMs intact bilaterally Neck no lymphadenopathy, supple and no JVD Resp normal respiratory effort and clear to auscultation bilaterally Cardio regular rate, regular rhythm and no murmurs GI normal to inspection, nondistended, normoactive bowel sounds and non-tender Palpation: soft Back/Spine no CVA tenderness and normal ROM Extremity normal to inspection General Extremety ED: Negative for edema General Extremity: Negative for edema Neuro oriented x3 and CN's II-XII intact bilaterally Sensorium / Orientation: alert Motor Exam: strength 5/5 throughout Psych mental status grossly normal Mood & Affect: Negative for depressed or tearful Skin no rashes or lesions noted and no wounds MDM MDM MDM Narrative Medical decision making narrative: My interpretation of the chest x-ray is no acute process. His influenza was negative a Covid is positive. Clinically the patient appears well. He will be discharged home with supportive care return if worsening or concerns Radiography Diagnostic Testing: Clinical Impression(s) from Imaging Studies Chest X-Ray 09/10/21 13:25 IMPRESSION: Normal x-ray examination of the chest. Electronically Signed: Jennifer Hardin MD at 13:49 EST Tel , Service support , Discharge Plan Triage Chief Complaint: Cough ED Provider: Zachary Almodovar Dx/Rx/DC Orders Clinical Impression: COVID-19 Instructions: Coronavirus Disease 2019 (COVID-19): Caring for Yourself or Others Prescriptions: No Action NK RF: 0 Primary Care Provider: Care Physician,No Primary Referrals: Amna Arroyo MD [STAFF PHYSICIAN] - As Needed (for primary care) Care Physician,No Primary [Primary Care Provider] - Disposition Disposition: Home, Self Care
--- NOTE | 2021-09-10 13:25 | RAD_ITS ---
STUDY: X-RAY CHEST REASON FOR EXAM: Male, 36 years old. cough Cough, fever, chills, upper abd pain and flank pain since sunday TECHNIQUE: Frontal portable view of the chest COMPARISON: No prior FINDINGS: The lungs are clear and expanded. There is no demonstrated pleural abnormality. Normal size heart. Normal mediastinum and laney. Normal visualized pulmonary arteries. Normal visualized aortic arch and descending thoracic aorta. Normal visualized thoracic spine. Normal visualized ribs, clavicles, and shoulders. There is spinal stimulation electrodes terminating in the midthoracic region. There is no demonstrated abnormality of the visualized soft tissue structures of the upper abdomen. RAD/Chest 1 View (Portable) IMPRESSION: Normal x-ray examination of the chest. Electronically Signed: Jennifer Hardin MD at 13:49 EST Tel , Service support ,
[2021-09-10] MEDS: Dicyclomine 10 MG Capsule 20 MG PO (13:27)
[2021-09-10] MEDS: Ondansetron ODT 4 MG Tablet PO (13:27)
[2021-09-10 14:25] VITALS: RESP 16; O2SAT 95
== END 2021-09-10 14:27 | disposition home or self-care (01) ==
PROVIDERS: Emergency Provider Emergency Medicine
DX: U07.1 COVID-19 (principal); R19.7 Diarrhea, unspecified; R11.0 Nausea
CPT/HCPCS: 71045; 87426; 87804; 99282

== ENCOUNTER 2024-06-19 14:34 | Emergency (ER) | payer SELFPAY ==
[2024-06-19 14:36] VITALS: BP 159/85; PULSE 97; RESP 14; TEMP 36.7; O2SAT 98; BMI 22.7
--- NOTE | 2024-06-19 15:05 | ED.VIS.GI ---
HPI HPI - GI History of Present Illness Chief Complaint: Abd Pain Detail of Chief Complaint: Intermittent abdominal pain for 9 months it is worse the past several days Informant: patient and spouse/S.O. Abdominal Pain/Flank Pain Onset: Month(s) Context: Sudden Onset Timing: Intermittent Quality: Aching and Dull Location: RUQ and RLQ Current Severity: Severe Maximum Severity: Severe Worsened by: Food Relieved by: Nothing Nausea/Vomiting/Emesis GI Symptom: Positive for Nausea and Vomiting Onset: Today Diarrhea/Melena/Hematochezia GI Symptom: Negative for Diarrhea, Melena or Hematochezia Associated Symptoms Associated Symptoms: Negative for Dysuria, Frequency, Hematuria or Urgency Narrative Narrative: Patient is a 39-year-old male. He has history of chronic back pain with a nerve stimulator and chronic abdominal pain that he has never sought medical attention for. He does have intolerance to greasy and fried foods. He states 10 years ago he was seen at [facility] and evaluated for gallbladder problems. He does not recall what the ultrasound may have revealed. He never followed up after that visit. He according to his 's had intolerance to greasy and fried foods for some time. He did have a doughnut, coffee with milk and other foods from the fair between 930 and 10:00. He had a large episode of emesis according to the . was the primary informant per his request. He denies fever, chills night sweats. He denies headache, visual, ocular auditory symptoms. He denies cardiac or respiratory symptoms. He states is not uncommon to have nausea and vomiting. There is no coffee-ground noted in the emesis or blood. He has had no black or maroon-colored stool. Prior similar symptoms: Yes Recent Illness/Hospitalization: No [facility] Home Medications ?Medication ?Instructions ?Recorded ?Last Taken ?Type NK 09/10/21 Unknown History morphine 15 mg immediate release 15 mg PO Q8H PRN pain 5 days #15 06/19/24 Unknown Rx tablet tabs ondansetron 4 mg disintegrating 4 mg PO Q8H PRN PRN Nausea #10 tabs 06/19/24 Unknown Rx tablet Allergy/AdvReac Type Severity Reaction Status Date / Time amoxicillin (Amoxicillin) Allergy Rash Verified 06/19/24 14:35 hydrocodone (From Vicodin) Allergy Shortness Verified 06/19/24 14:35 of breath,rash Surgical History Previous back surgery Social History (Updated 06/19/24 @ 15:[address] Virgil Keller MD) household members: spouse and children Smoking Status: Never smoker substance use type: does not use ROS ROS ED Constitutional Constitutional ED: Denies chills, fever(s), subjective or sweats ENT ENT ED: Denies ear pain, rhinorrhea or sore throat Cardiovascular Cardiovascular: Denies chest pain, palpitations or racing heartbeat Respiratory/Chest Respiratory/Chest: Denies cough, dyspnea or dyspnea on exertion Gastrointestinal Gastrointestinal: Reports abdominal pain, nausea and vomiting; Denies constipation or diarrhea Genitourinary Genitourinary ED: Denies dysuria, hematuria or urinary frequency Musculoskeletal Musculoskeletal: Denies arthralgias or myalgias Integumentary Denies Abrasions or rash Neurologic Neurologic: Denies headache(s), paresthesias or weakness Hematologic/Lymphatic Hematologic/Lymphatic: Denies easy bleeding or easy bruising EXAM Physical Exam Const Vital Signs: 06/19/24 14:36 06/19/24 16:35 Temperature 98.1 F Temperature Source Temporal Pulse Rate 97 74 Respiratory Rate 14 18 Blood Pressure 159/85 H 138/84 H Blood Pressure Mean 109 102 Pulse Ox 98 99 Oxygen Delivery Method Room Air Room Air Positive well nourished and well developed Constitutional Narrative: Patient appears uncomfortable. He appears unwell General Appearance ED: well developed; Negative for NAD or pallor HEENT Reports dry mucous membranes normocephalic and atraumatic Mouth ED: Yes dry mucous membranes Mouth: dry mucous membranes Eyes EOMs intact bilaterally General Eye ED: Negative for pale conjunctiva or scleral icterus Neck no lymphadenopathy and no JVD Resp normal respiratory effort and clear to auscultation bilaterally Cardio regular rate, regular rhythm, S1 normal heart sound, S2 normal heart sound and no murmurs GI non-distended; Negative for non-tender or no masses GI Narrative: Clinical Queen sign noted. Inspection: Negative for abdominal distention Auscultation: hypoactive bowel sounds Palpation: soft, tender RLQ and RUQ and guarding RUQ; Negative for rigid, hepatomegaly, splenomegaly, hernia, mass or pulsatile mass Back/Spine no CVA tenderness Extremity General Extremety ED: Negative for edema or tenderness General Extremity: Negative for edema Neuro CN's II-XII intact bilaterally and moves all extremities Sensorium / Orientation: alert Psych mental status grossly normal and thought process normal Skin no wounds General Skin Exam: Negative for jaundice or pallor Lesions: no lesions Rashes: no rashes MDM MDM MDM Narrative Medical decision making narrative: Differential diagnosis is abdominal pain unknown etiology, biliary disease, enteritis regional, malignancy. With history of intolerance to greasy fried foods having rich food today with nausea vomiting and worsening of his pain #1 concern is biliary disease. Will not be able to obtain ultrasound until 4:00 at the minimum if warranted since he ate between 930 and 10 AM this morning. According to he has not seen a doctor in approximately 7 years. Review of prior records the case patient has had morphine in the past with no reaction. Lab Data Attestation: I reviewed the patient's lab results. Lab results narrative: Count and differential normal. Hepatic profile normal. Lipase normal. Ultrasound reveals sonographic Queen sign with sludge in the gallbladder. The gallbladder is distended. Case was discussed with Dr. Carvajal who is on-call for surgery. Patient was discharged to home with appropriate home-going structures and follow-up with Dr. Carvajal. Labs: Laboratory Results - last 24 hr 06/19/24 14:46 WBC 9.3 RBC 5.19 Hgb 14.9 Hct 45.1 MCV 86.9 MCH 28.7 MCHC 33.0 RDW Std Deviation 37.4 RDW Coeff of Felicita 11.7 Plt Count 305 MPV 9.6 Immature Gran % (Auto) 0.200 Neut % (Auto) 62.5 Lymph % (Auto) 26.0 [place] % (Auto) 8.2 Eos % (Auto) 2.3 Baso % (Auto) 0.8 Absolute Neuts (auto) 5.8 Absolute Lymphs (auto) 2.42 Nucleated RBC % 0 Sodium 138 Potassium 3.6 Chloride 106 Carbon Dioxide 25.0 Anion Gap 7 BUN 13 Creatinine 0.91 Estim Creat Clear Calc 121.48 Est GFR (MDRD) Af Amer 117 Est GFR (MDRD) Non-Af 97 BUN/Creatinine Ratio 14.2 Glucose 93 Calcium 9.2 Total Bilirubin 0.60 Direct Bilirubin 0.15 AST 8 L ALT 28 Alkaline Phosphatase 102 Total Protein 7.4 Albumin 4.3 Globulin 3.1 Lipase 32 Radiography Diagnostic Testing: Clinical Impression(s) from Imaging Studies Gallbladder Ultrasound 06/19/24 16:19 IMPRESSION: 1. Distended gallbladder, no gallbladder wall thickening or shadowing calcifications however small amount of sludge is present and there is a positive sonographic Queen sign. No pericholecystic fluid. 2. Normal appearance of the liver and RIGHT kidney. Limited visualization of the pancreas. Electronically Signed: Eh Xie MD at 18:06 EDT , Discharge Plan Triage Chief Complaint: Abd Pain ED Provider: Virgil Keller Dx/Rx/DC Orders Clinical Impression: Biliary colic symptom, Sludge in gallbladder, Right upper quadrant abdominal pain with positive Queen Sign, Nausea & vomiting Instructions: ED Gallstones with Biliary Colic Prescriptions: New ondansetron 4 mg tablet,disintegrating 4 mg PO Q8H PRN PRN (Reason: Nausea) Qty: 10 0RF morphine 15 mg tablet 15 mg PO Q8H PRN (Reason: pain) 5 Days Qty: 15 0RF No Action NK Primary Care Provider: Care Physician,No Primary Referrals: Raymond Carvajal MD [Med Staff - Active Staff] - 5-7 Days Care Physician,No Primary [Primary Care Provider] - Activity Restrictions/Additional Instructions: Avoid greasy or fried foods. No butter, sour cream, cream cheese, rich desserts. Call Dr. Carvajal's office for outpatient follow-up and discuss treatment options Print Language: Belarusian Disposition Disposition: Home, Self Care
[2024-06-19] MEDS: 0.9% Normal Saline (1000mL) 1,000 ML 125 ML IV (15:11)
[2024-06-19] MEDS: Morphine 4 MG/ML Syringe IV (15:11)
[2024-06-19] MEDS: Ondansetron 4 MG/2 ML Vial IV (15:11)
[2024-06-19 15:33] LABS: Absolute Lymphocyte Count 2.42 X10^3/uL (0.83-4.51); Absolute Neutrophil Count 5.8 X10^3/uL (2.0-7.7); Basophil# 0.07 X10^3/uL; Basophil% 0.8 % (0-1); Eosinophil# 0.21 X10^3/uL; Eosinophils% 2.3 % (0-5); Hematocrit 45.1 % (40-54); Hemoglobin 14.9 g/dL (13.0-16.5); Lymphocyte # 2.42 X10^3/ul (0.83-4.51); Mean Corpuscular Hgb 28.7 pg (27.0-32.0); Mean Corpuscular Volume 86.9 fL (80-94); Mean Platelet Vol. 9.6 fl (6.2-12.0); Monocyte# 0.76 X10^3/uL; Monocyte% 8.2 % (0-10); NRBC Flagged by Analyzer 0 % (0-5); Neutrophil # 5.84 X10^3/uL (2.7-7.7); Neutrophil % 62.5 % (47-70); Platelet Count 305 K/mm3 (150-450); RBC Distribution Width CV 11.7 % (11.6-14.6); RBC Distribution Width SD 37.4 fl (35.1-43.9); Red Blood Count 5.19 M/mm3 (4.6-6.2); White Blood Count 9.3 K/mm3 (4.4-11.0)
[2024-06-19 15:58] LABS: AST(SGOT) 8 U/L (15-37); Alanine Aminotransfer ALT/SGPT 28 U/L (16-61); Albumin, Serum 4.3 g/dL (3.2-5.0); Alkaline Phosphatase 102 U/L (45-117); Anion Gap 7 (5-15); BUN 13 mg/dL (7-18); BUN/Creat Ratio 14.2 RATIO (10-20); Bilirubin, Direct 0.15 mg/dL (0.00-0.30); Calcium,Total 9.2 mg/dL (8.5-10.1); Chloride 106 mmol/L (98-107); Creatinine, Serum 0.91 mg/dL (0.70-1.30); EST Glomerular Filtration Rate 97 mL/min (>60); Est Glom Filt Rate - Afr Amer 117 mL/min (>60); Estimated Creatinine Clearance 121.48 ml/min; Globulin 3.1 g/dL (2.2-4.2); Glucose 93 mg/dL (74-106); Lipase 32 U/L (13-75); Potassium 3.6 mmol/L (3.5-5.1); Protein, Total 7.4 g/dL (6.4-8.2); Sodium Level 138 mmol/L (136-145)
--- NOTE | 2024-06-19 16:19 | US_ITS ---
INDICATION: Right upper quadrant pain -- Ate at 9:30 AM and vomited at 10 AM EXAMINATION: Ultrasound US Gallbladder (abdomen limited) TECHNIQUE: Lewis scale and color doppler imaging was performed of the gallbladder. COMPARISON: None. FINDINGS: LIVER: There is normal echotexture and has maximal dimension of 14.0 cm. No focal hepatic lesion. No intrahepatic biliary ductal dilatation. There is no free fluid. GALLBLADDER AND BILIARY TREE: Gallbladder is distended with maximal dimension of 7.3 cm. There is intraluminal sludge, no calcifications noted. Common bile duct measures 4 mm. SONOGRAPHIC QUEEN''S SIGN: Positive. PANCREAS: Limited visualization due to shadowing bowel gas however no focal abnormality noted. KIDNEYS GENERAL: There is no hydronephrosis. No shadowing calculus, focal lesion, or perinephric collection is demonstrated. RIGHT kidney: 12.2 x 5.7 x 6.4 cm VESSELS: Submitted longitudinal images of the intra-abdominal aorta demonstrate no gross abnormalities and are unremarkable. The IVC is patent. US/Gallbladder IMPRESSION: 1. Distended gallbladder, no gallbladder wall thickening or shadowing calcifications however small amount of sludge is present and there is a positive sonographic Queen sign. No pericholecystic fluid. 2. Normal appearance of the liver and RIGHT kidney. Limited visualization of the pancreas. Electronically Signed: Eh Xie MD at 18:06 EDT ,
[2024-06-19 16:35] VITALS: BP 138/84; PULSE 74; RESP 18; O2SAT 99
[2024-06-19 18:00] VITALS: BP 133/80; PULSE 85; RESP 18; O2SAT 97
[2024-06-19 18:33] VITALS: BP 133/80; PULSE 85; RESP 18; TEMP 36.2; O2SAT 97
== END 2024-06-19 18:34 | disposition home or self-care (01) ==
PROVIDERS: Emergency Provider Emergency Medicine; Referring Provider Emergency Medicine; Visit Provider Emergency Medicine
DX: K80.50 Calculus of bile duct without cholangitis or cholecystitis without obstruction (principal); K83.8 Other specified diseases of biliary tract; R11.2 Nausea with vomiting, unspecified; R10.11 Right upper quadrant pain
CPT/HCPCS: 76705; 80048; 80076; 83690; 85025; 96361; 96374; 96375; 99283; J7030; A4216; J2405

== ENCOUNTER 2024-06-23 12:13 | Observation (INO) | payer SELFPAY ==
[2024-06-23 12:13] VITALS: PULSE 98; RESP 16; TEMP 36.6; O2SAT 98; BMI 21.2
[2024-06-23] MEDS: Ondansetron 4 MG/2 ML Vial IV (13:00)
[2024-06-23] MEDS: Morphine 4 MG/ML Syringe IV (13:00)
[2024-06-23] MEDS: 0.9% Normal Saline (1000mL) 1,000 ML 1000 ML IV (13:00)
[2024-06-23 13:12] LABS: Absolute Lymphocyte Count 1.98 X10^3/uL (0.83-4.51); Absolute Neutrophil Count 3.7 X10^3/uL (2.0-7.7); Basophil# 0.04 X10^3/uL; Basophil% 0.6 % (0-1); Eosinophil# 0.12 X10^3/uL; Eosinophils% 1.9 % (0-5); Hematocrit 47.9 % (40-54); Hemoglobin 15.9 g/dL (13.0-16.5); Lymphocyte # 1.98 X10^3/ul (0.83-4.51); Lymphocyte % 30.6 % (19-41); Mean Corp Hgb Conc 33.2 g/dL (32-36); Mean Corpuscular Hgb 28.5 pg (27.0-32.0); Mean Corpuscular Volume 85.8 fL (80-94); Mean Platelet Vol. 9.3 fl (6.2-12.0); Monocyte# 0.64 X10^3/uL; Monocyte% 9.9 % (0-10); NRBC Flagged by Analyzer 0 % (0-5); Neutrophil # 3.68 X10^3/uL (2.7-7.7); Neutrophil % 56.8 % (47-70); Platelet Count 252 K/mm3 (150-450); RBC Distribution Width CV 11.5 % (11.6-14.6); RBC Distribution Width SD 35.8 fl (35.1-43.9); Red Blood Count 5.58 M/mm3 (4.6-6.2); White Blood Count 6.5 K/mm3 (4.4-11.0)
[2024-06-23 13:28] LABS: AST(SGOT) 10 U/L (15-37); Alanine Aminotransfer ALT/SGPT 25 U/L (16-61); Albumin, Serum 4.1 g/dL (3.2-5.0); Alkaline Phosphatase 98 U/L (45-117); Bilirubin, Direct 0.16 mg/dL (0.00-0.30); Globulin 3.2 g/dL (2.2-4.2); Lipase 32 U/L (13-75); Protein, Total 7.3 g/dL (6.4-8.2)
--- NOTE | 2024-06-23 13:42 | EX.ED.DYSGE1 ---
[facility] <Dr. Virgil Keller MD - Last Filed: 06/24/24 05:57> History of Present Illness Chief Complaint: Abd Pain Detail of Chief Complaint: Right upper quadrant abdominal pain Onset/Context/Timing Onset: Month(s) Context: Sudden Onset Timing: Waxes and wanes Quality: Right upper quadrant bowel pain after having jelly on toes. Location: Right upper quadrant Current Severity: Moderate Maximum Severity: Severe Worsened by: Palpation and eating Relieved by: Nothing Associated Symptoms Associated Symptoms: Nausea Narrative Narrative: Patient is a 39-year-old male. He was seen by me on June 20. He was diagnosed with biliary colic. Ultrasound revealed a distended gallbladder with a sonographic Queen sign and sludge. Case was discussed with Dr. Raymond Carvajal. Patient is scheduled to see Dr. Carvajal on Sunday. Patient states the pain became severe after toast and jelly. He did take pain medicine prescribed with no improvement. He presents now because of pain. Prior similar symptoms: Yes Recent Illness/Hospitalization: Yes PFSH <Dr. Virgil Keller MD - Last Filed: 06/24/24 05:57> [facility] Medical History (Updated 06/23/24 @ 18:[address] Yajaira Orozco DO) Chronic low back pain with sciatica COVID-19 Chronic low back pain Home Medications ?Medication ?Instructions ?Recorded ?Last Taken ?Type morphine 15 mg immediate release 15 mg PO Q8H PRN pain 5 days #15 06/19/24 06/23/24 Rx tablet tabs ondansetron 4 mg disintegrating 4 mg PO Q8H PRN PRN Nausea #10 tabs 06/19/24 06/23/24 Rx tablet Allergy/AdvReac Type Severity Reaction Status Date / Time amoxicillin (Amoxicillin) Allergy Rash Verified 06/23/24 12:53 hydrocodone (From Vicodin) Allergy Shortness Verified 06/23/24 12:53 of breath,rash Family History (Updated 06/23/24 @ 18:[address] Yajaira Orozco DO) Other Gallbladder disease Surgical History Previous back surgery Social History (Updated 06/23/24 @ 18:[address] Yajaira Orozco DO) household members: spouse and children Smoking Status: Never smoker alcohol intake: never substance use type: does not use ROS <Dr. Virgil Keller MD - Last Filed: 06/24/24 05:57> ROS ED Constitutional Constitutional ED: Denies chills, fever(s), subjective or sweats Cardiovascular Cardiovascular: Denies chest pain or palpitations Respiratory/Chest Respiratory/Chest: Denies cough, dyspnea or dyspnea on exertion Gastrointestinal Gastrointestinal: Reports abdominal pain and nausea; Denies diarrhea, melena or vomiting Genitourinary Genitourinary ED: Denies dysuria, hematuria or urinary frequency Musculoskeletal Musculoskeletal: Reports back pain and other Details: Pain does radiate to the right side scapular region. ; Denies arthralgias, myalgias or neck pain Integumentary Denies rash Neurologic Neurologic: Reports headache(s), paresthesias and weakness Hematologic/Lymphatic Hematologic/Lymphatic: Reports systems reviewed and no addt'l complaints, except as documented EXAM <Dr. Virgil Keller MD - Last Filed: 06/24/24 05:57> Physical Exam Const Vital Signs: 06/23/24 12:13 06/23/24 14:13 06/23/24 16:00 Temperature 98 F Temperature Source Temporal Pulse Rate 98 81 97 Respiratory Rate 16 16 18 Blood Pressure 121/75 H 156/87 H Blood Pressure Mean 90 110 Pulse Ox 98 98 97 Oxygen Delivery Method Room Air Room Air Room Air Positive well nourished and well developed Constitutional Narrative: Patient appears uncomfortable. General Appearance ED: well developed; Negative for pallor HEENT Reports dry mucous membranes HEENT Narrative: Head is atraumatic normocephalic. Ears normal. Mouth ED: Yes dry mucous membranes Mouth: dry mucous membranes Eyes PERRL and EOMs intact bilaterally General Eye ED: Negative for pale conjunctiva or scleral icterus Neck no lymphadenopathy and supple Resp normal respiratory effort and clear to auscultation bilaterally Cardio regular rate, regular rhythm, S1 normal heart sound, S2 normal heart sound and no murmurs GI non-distended and no masses; Negative for non-tender or hepatosplenomegaly GI Narrative: There is tenderness in the right upper quadrant with a clinical Queen sign. There is no peritoneal findings. Patient's abdomen is firm. It was firm on Sunday. His pain is much worse than it was on Sunday. Back/Spine no CVA tenderness Extremity normal to inspection Neuro oriented x3 and CN's II-XII intact bilaterally Sensorium / Orientation: alert Psych mental status grossly normal Skin no rashes or lesions noted, no wounds and skin turgor normal General Skin Exam: Negative for jaundice or pallor <Dr. Jesus Breen MD - Last Filed: 06/23/24 17:02> Physical Exam Const Vital Signs: 06/23/24 12:13 06/23/24 14:13 06/23/24 16:00 Temperature 98 F Temperature Source Temporal Pulse Rate 98 81 97 Respiratory Rate 16 16 18 Blood Pressure 121/75 H 156/87 H Blood Pressure Mean 90 110 Pulse Ox 98 98 97 Oxygen Delivery Method Room Air Room Air Room Air MDM <Dr. Virgil Keller MD - Last Filed: 06/24/24 05:57> MDM MDM Narrative Medical decision making narrative: Clinically patient appears dehydrated. He admits he has not had much to eat or drink. Blood work was repeated and will compare to Fridays results. Repeat imaging is not indicated in my opinion. History & Record Review Additional record(s) reviewed:: Prior ED visit and Prior labs Lab Data Attestation: I reviewed the patient's lab results. Lab results narrative: Laboratory work is again normal. Labs: Laboratory Results - last 24 hr 06/23/24 12:54 WBC 6.5 RBC 5.58 Hgb 15.9 Hct 47.9 MCV 85.8 MCH 28.5 MCHC 33.2 RDW Std Deviation 35.8 RDW Coeff of Felicita 11.5 L Plt Count 252 MPV 9.3 Immature Gran % (Auto) 0.200 Neut % (Auto) 56.8 Lymph % (Auto) 30.6 [place] % (Auto) 9.9 Eos % (Auto) 1.9 Baso % (Auto) 0.6 Absolute Neuts (auto) 3.7 Absolute Lymphs (auto) 1.98 Nucleated RBC % 0 Total Bilirubin 0.60 Direct Bilirubin 0.16 AST 10 L ALT 25 Alkaline Phosphatase 98 Total Protein 7.3 Albumin 4.1 Globulin 3.2 Lipase 32 Radiography Diagnostic Testing: Clinical Impression(s) from Imaging Studies Gallbladder Ultrasound 06/23/24 13:57 IMPRESSION: Positive sonographic Queen''s sign. No evidence of cholelithiasis. Electronically Signed: Darryl Ayala MD at 15:17 EDT , Abdomen/Pelvis CT 06/23/24 15:42 IMPRESSION: No evidence for small bowel obstruction , acute appendicitis or other acute abnormality Electronically Signed: Madhav De Anda MD at 16:30 EDT , <Dr. Jesus Breen MD - Last Filed: 06/23/24 17:02> MDM MDM Narrative Medical decision making narrative: Clinically patient appears dehydrated. He admits he has not had much to eat or drink. Blood work was repeated and will compare to Fridays results. Repeat imaging is not indicated in my opinion. Patient turned over to me from Dr. Keller. This is patient's second ER visit within the last 5 days. His labs today and ultrasound with gallbladder show no specific diagnosis. Patient, his and mother all present emergency department. They do not feel comfortable taking him home. I spoke with general surgery on-call Dr. Yossi Su they do not have a specific diagnosis. I am going to CT the patient he has not had a CAT scan for 4 years. And then have medicine evaluate him for possible admission and further workup since he is unable to keep food down and is having intractable nausea vomiting and pain. Repeat exam at 5 PM unchanged. I have already spoken to general surgery. I will have the hospitalist come down evaluate the patient for either admission for further evaluation or discharged home with outpatient follow-up he has appointment to see general surgery on Sunday. Lab Data Lab results narrative: Laboratory work is again normal. Ultrasound the gallbladder showed no acute abnormality. CT of the abdomen pelvis with IV contrast showed no acute abnormality is read by the radiologist. Labs: Laboratory Results - last 24 hr 06/23/24 12:54 WBC 6.5 RBC 5.58 Hgb 15.9 Hct 47.9 MCV 85.8 MCH 28.5 MCHC 33.2 RDW Std Deviation 35.8 RDW Coeff of Felicita 11.5 L Plt Count 252 MPV 9.3 Immature Gran % (Auto) 0.200 Neut % (Auto) 56.8 Lymph % (Auto) 30.6 [place] % (Auto) 9.9 Eos % (Auto) 1.9 Baso % (Auto) 0.6 Absolute Neuts (auto) 3.7 Absolute Lymphs (auto) 1.98 Nucleated RBC % 0 Total Bilirubin 0.60 Direct Bilirubin 0.16 AST 10 L ALT 25 Alkaline Phosphatase 98 Total Protein 7.3 Albumin 4.1 Globulin 3.2 Lipase 32 Radiography Diagnostic Testing: Clinical Impression(s) from Imaging Studies Gallbladder Ultrasound 06/23/24 13:57 IMPRESSION: Positive sonographic Queen''s sign. No evidence of cholelithiasis. Electronically Signed: Darryl Ayala MD at 15:17 EDT , Abdomen/Pelvis CT 06/23/24 15:42 IMPRESSION: No evidence for small bowel obstruction , acute appendicitis or other acute abnormality Electronically Signed: Madhav De Anda MD at 16:30 EDT , Discharge Plan Disposition Disposition: Acute Care Hospital [facility] Discharge Date/Time: 06/23/24 18:58
--- NOTE | 2024-06-23 13:57 | US_ITS ---
STUDY: ABDOMINAL ULTRASOUND - RIGHT UPPER QUADRANT REASON FOR VISIT: Male, 39 years old Repeat gallbladder requested by Dr. Su TECHNIQUE: Ultrasound evaluation of the right upper quadrant was performed with real-time and static collins-scale imaging. TECHNICAL QUALITY: Adequate. COMPARISON: Comparison is made with prior study dated June 19, 2024. FINDINGS: Liver: The liver measures 13.7 cm. There is normal echogenicity of the liver. The bile ducts are within normal limits. There is hepatic color flow. The direction of portal flow is hepatopetal. There is no demonstrated mass lesion. Gallbladder: Normal distended gallbladder. The gallbladder wall measures 2 mm. There is a positive sonographic Queen''s sign. There is no pericholecystic fluid. There are no gallstones. Common Bile Duct (C.B.D.): The common bile duct measures 3 mm. Pancreas: There is nonvisualization of the pancreas due to overlying bowel gas. Right Kidney: Normal size of the right kidney. The right kidney measures 12.4 cm x 4.9 cm x 5.7 cm. Normal renal cortex. The right cortex measures 1.5 cm. There is no demonstrated renal mass or cyst. There is no right hydronephrosis. US/Gallbladder IMPRESSION: Positive sonographic Queen''s sign. No evidence of cholelithiasis. Electronically Signed: Darryl Ayala MD at 15:17 EDT ,
[2024-06-23 14:13] VITALS: BP 121/75; PULSE 81; RESP 16; O2SAT 98
--- NOTE | 2024-06-23 15:42 | CT_ITS ---
STUDY: CT ABDOMEN AND PELVIS WITH CONTRAST REASON FOR EXAM: Male, 39 years old. right sided abd pain RADIATION DOSAGE (If Supplied By Facility): CTDIvol = ( 12.65 ) mGy, DLP = ( 639.89 ) mGycm TECHNIQUE: Transaxial images were obtained from the dome of the diaphragm to the symphysis pubis without oral contrast. IV 100mL Isovue-370 was administered. Sagittal and coronal images were reconstructed. Individualized dose optimization techniques were used for this CT. COMPARISON: May 09, 2020 FINDINGS: The visualized lung bases are unremarkable. The visualized portions of the heart are within normal limits. Normal liver. Normal gallbladder and extrahepatic biliary system. Normal spleen. Normal pancreas. Normal bilateral adrenal glands. Normal right kidney. Normal left kidney. Normal visualized stomach. Normal small intestine. Normal colon. Normal appendix is not clearly visualized however there are no secondary signs for acute appendicitis. Clinical correlation recommended Normal abdominal aorta. Normal inferior vena cava. Normal retroperitoneum. Nonspecific bladder distention. Normal abdominal wall. Lumbar spine demonstrates minor spondylosis CT/Abdomen/Pelvis W IV Cont ONLY IMPRESSION: No evidence for small bowel obstruction , acute appendicitis or other acute abnormality Electronically Signed: Madhav De Anda MD at 16:30 EDT ,
[2024-06-23 16:00] VITALS: BP 156/87; PULSE 97; RESP 18; O2SAT 97
[2024-06-23 17:27] VITALS: BP 119/72; PULSE 84; RESP 17; TEMP 37.2; O2SAT 98
--- NOTE | 2024-06-23 17:29 | PCM.HP.STD ---
HPI - General General Date of Admission: 06/23/24 Date of Service: 06/23/24 Chief Complaint: Intractable right upper quadrant pain/nausea and vomiting HPI Narrative ANDRES CASTRO, is a 39 M who presented to the emergency department at [facility] on 06/23/2024 due to ongoing issues with right upper quadrant pain and intractable nausea and vomiting. He has been having ongoing issues with right upper quadrant pain that have progressively getting worse over the last 9 months. Initially his symptoms only occurred after eating fatty meal like [employer] but as of late he is vomiting just about on anything including water and liquids. He was seen in the emergency department on 06/19/2024 for symptoms of biliary colic and his labs were overall unremarkable at that time however his ultrasound of his right upper quadrant revealed a positive sonographic Queen sign as well as sludge in the gallbladder with gallbladder distention. The case was discussed with Dr. Carvajal who was on-call for surgery at that time and follow-up appointment was made for 06/25/[address] Carvajal in his office for further evaluation for the need of cholecystectomy. Unfortunately his symptoms have been persistent to the point where he is not able to keep an toast or fluids and has had ongoing worsening pain so he represented to the emergency department today. At home, he is taking p.o. morphine for this and is on as needed Zofran for his nausea but not getting any relief. His last meal was Sunday evening and was smaller than his typical meals. His does report that he has been having coughing after he eats for significant period of time for some time as well. Vital signs on presentation showed a temperature of 98, heart rate 98, respiratory rate 16, blood pressure 121/75 and pulse ox was 98% on room air. CBC was completely unremarkable. Chemistry panel was unremarkable. LFTs were unremarkable with normal bilirubin normal AST and normal ALT. Lipase was normal at 32. Repeat ultrasound of the right upper quadrant was performed and showed a repeat positive sonographic Queen sign with no gallbladder distention, no gallbladders and no pericholestatic fluid with normal common bile duct dimensions. CT of the abdomen pelvis was also performed which demonstrated no significant acute abnormalities. Given his ongoing remarkable pain and nausea along with being unable to take any substantial p.o. food or liquid he was admitted to the hospital for further workup. [facility] Medical History (Updated 06/23/24 @ 18:[address] Yajaira Orozco DO) Chronic low back pain with sciatica COVID-19 Chronic low back pain no medical history Home Medications ?Medication ?Instructions ?Recorded ?Last Taken ?Type morphine 15 mg immediate release 15 mg PO Q8H PRN pain 5 days #15 06/19/24 06/23/24 Rx tablet tabs ondansetron 4 mg disintegrating 4 mg PO Q8H PRN PRN Nausea #10 tabs 06/19/24 06/23/24 Rx tablet Allergy/AdvReac Type Severity Reaction Status Date / Time amoxicillin (Amoxicillin) Allergy Rash Verified 06/23/24 12:53 hydrocodone (From Vicodin) Allergy Shortness Verified 06/23/24 12:53 of breath,rash Family History (Updated 06/23/24 @ 18:[address] Yajaira Orozco DO) Other Gallbladder disease Surgical History Previous back surgery Social History (Updated 06/23/24 @ 18:[address] Yajaira Orozco DO) household members: spouse and children Smoking Status: Never smoker alcohol intake: never substance use type: does not use ROS Review of Systems ROS Unobtainable: Denies due to encephalopathy, due to endotracheal tube, due to mental condition, due to mental status or other Constitutional Constitutional: Reports change in weight; Denies anorexia, chills, fatigue, fever(s), malaise, night sweats, weakness or other Eyes Eyes: Denies blurry vision, change in eye color, change in vision, discharge from eye(s), double vision, erythema, eye pain, loss of vision or other ENT HEENT: Denies abnormal hearing, dysphagia, ear pain, epistaxis, headache(s), hearing loss, nasal congestion, nasal discharge, post nasal drip, sinus pressure, sore throat or other Cardiovascular Cardiovascular: Denies chest pain, claudication, dyspnea on exertion, edema, lightheadedness, orthopnea, palpitations, paroxysmal nocturnal dyspnea, rapid heart rate, syncope or other Respiratory/Chest Respiratory/Chest: Denies cough, dyspnea, excessive phlegm production, hemoptysis, productive cough, shortness of breath at rest, shortness of breath with exertion, wheezing or other Gastrointestinal Gastrointestinal: Reports abdominal pain, nausea and vomiting; Denies coffee ground emesis, constipation, diarrhea, dyspepsia, hematemesis, hematochezia, loose stools, melena or other Genitourinary Genitourinary: Denies burning urination, difficulty urinating, dysuria, hematuria, nocturia, urinary frequency, urinary hesitancy, urinary incontinence, urinary urgency or other Musculoskeletal Musculoskeletal: Denies arthralgias, back pain, joint pain, joint stiffness, joint swelling, myalgias, neck pain or other Neurologic Neurologic: Denies abnormal gait, abnormal speech, confusion, disequilibrium, dizziness, focal weakness, headache(s), numbness, paresthesias, seizure-like activity, seizures, syncope, tingling, tremor(s) or other Psychiatric Psychiatric: Denies anxiety, depression, homicidal ideation, suicidal ideation or other Endocrine Endocrinology: Denies change in body appearance, cold intolerance, excessive sweating, heat intolerance, polydipsia, polyuria or other Hematologic/Lymphatic Hematologic/Lymphatic: Denies anemia, easy bleeding, easy bruising, lymphadenopathy or other Allergic/Immunologic Allergic/Immunologic: Denies rhinitis, hives, eczemia, asthma or other Vital Signs Vital Signs Vital Signs: 06/23/24 12:13 06/23/24 14:13 06/23/24 16:00 Temperature 98 F Temperature Source Temporal Pulse Rate 98 81 97 Respiratory Rate 16 16 18 Blood Pressure 121/75 H 156/87 H Blood Pressure Mean 90 110 Pulse Ox 98 98 97 Oxygen Delivery Method Room Air Room Air Room Air 06/23/24 17:27 Temperature 98.9 F Temperature Source Pulse Rate 84 Respiratory Rate 17 Blood Pressure 119/72 Blood Pressure Mean 87 Pulse Ox 98 Oxygen Delivery Method Weight Weight: 75.115 kg Body Mass Index (BMI) 21.2 Physical Exam Const alert, oriented x3 and no apparent distress; Negative for average body habitus, healthy appearing or well nourished Constitutional Narrative: 8, middle-aged, white male, sitting up in bed, currently appears comfortable, does not appear toxic, at bedside General Appearance: cooperative HEENT normocephalic, head/scalp atraumatic, hearing grossly normal bilaterally and moist oral mucous membranes HEENT Narrative: Dentition is good for age, Mallampati is 2, no thrush Resp normal respiratory effort, no retractions, no use of accessory muscles and clear to auscultation bilaterally Auscultation: Negative for rales, rhonchi or wheezes Cardio regular rate, regular rhythm, S1 normal heart sound, S2 normal heart sound, no murmurs, no rub, no gallops and no clicks GI normal to inspection, nondistended, normoactive bowel sounds, soft to palpation and non-tender Extremity no clubbing, cyanosis or edema Extremity Narrative: Pedal pulses are 2+, radial pulses are 2+ Neuro oriented x3, moves all extremities and no focal motor deficits Speech: speech normal Psych affect normal Psych Narrative: Very pleasant, interacts appropriately Results Lab / Micro Data 06/23/24 12:54 Labs: Laboratory Results - last 24 hr 06/23/24 12:54: WBC 6.5, RBC 5.58, Hgb 15.9, Hct 47.9, MCV 85.8, MCH 28.5, MCHC 33.2, RDW Std Deviation 35.8, RDW Coeff of Felicita 11.5 L, Plt Count 252, MPV 9.3, Immature Gran % (Auto) 0.200, Neut % (Auto) 56.8, Lymph % (Auto) 30.6, [place] % (Auto) 9.9, Eos % (Auto) 1.9, Baso % (Auto) 0.6, Absolute Neuts (auto) 3.7, Absolute Lymphs (auto) 1.98, Nucleated RBC % 0, Total Bilirubin 0.60, Direct Bilirubin 0.16, AST 10 L, ALT 25, Alkaline Phosphatase 98, Total Protein 7.3, Albumin 4.1, Globulin 3.2, Lipase 32 Imaging Radiology Impression Gallbladder Ultrasound 06/23/24 13:57 IMPRESSION: Positive sonographic Queen''s sign. No evidence of cholelithiasis. Electronically Signed: Darryl Ayala MD at 15:17 EDT , Abdomen/Pelvis CT 06/23/24 15:42 IMPRESSION: No evidence for small bowel obstruction , acute appendicitis or other acute abnormality Electronically Signed: Madhav De Anda MD at 16:30 EDT , Assessment & Plan Assessment/Plan (1) Right upper quadrant abdominal pain with positive Queen Sign: (2) Nausea & vomiting: (3) Biliary colic symptom: (4) Sludge in gallbladder: PLAN: Plan Chronic right upper quadrant pain with positive Queen sign/intractable nausea and vomiting -IV fluids with LR at 100 cc/h -Clear liquids as tolerated -As needed Zofran with Compazine for breakthrough -Scopolamine patch -As needed Dilaudid for right upper quadrant pain -As needed Toradol -Check HIDA scan if positive will need general surgery consultation and if negative consider GI consultation -IV PPI Poor p.o. intake -Suspect malnutrition -May need supplements when p.o. intake can be reestablished -Dietitian consultation Chronic low back pain -Continue outpatient follow-up DVT prophylaxis -Subcu Lovenox CODE STATUS -Full code Charges/Coding Visit Charges Inpatient E&M: 43053 Init Hosp L2
[2024-06-23 18:00] VITALS: BP 133/85; PULSE 79; RESP 18; O2SAT 99
[2024-06-23 19:36] VITALS: BMI 21.3
[2024-06-23 19:50] VITALS: BP 134/87; PULSE 75; RESP 18; TEMP 36.8; O2SAT 97
[2024-06-23] MEDS: Lactated Ringers 1,000 ML 100 ML IV (20:00)
[2024-06-23] MEDS: HYDROmorphone 1 MG/ML Syringe IV (20:01)
[2024-06-23] MEDS: Scopolamine 1mg/72hr Patch 1 PATCH TD (20:49)
[2024-06-24 02:20] VITALS: BP 135/75; PULSE 68; RESP 17; TEMP 36.5; O2SAT 97
[2024-06-24 02:21] VITALS: BP 135/75; PULSE 68; RESP 17; TEMP 36.5; O2SAT 97
[2024-06-24] MEDS: Ketorolac 15 MG/ML Vial IV (02:27)
[2024-06-24] MEDS: Lactated Ringers 1,000 ML 100 ML IV (05:47)
[2024-06-24 08:10] VITALS: BP 118/74; PULSE 53; RESP 18; TEMP 36.3; O2SAT 97
[2024-06-24 08:14] LABS: ALB/GLOB Ratio 1.2 RATIO (0.9-2.4); AST(SGOT) 9 U/L (15-37); Alanine Aminotransfer ALT/SGPT 20 U/L (16-61); Albumin, Serum 3.5 g/dL (3.2-5.0); Alkaline Phosphatase 86 U/L (45-117); Anion Gap 5 (5-15); BUN 14 mg/dL (7-18); BUN/Creat Ratio 15.7 RATIO (10-20); Calcium,Total 9.1 mg/dL (8.5-10.1); Chloride 105 mmol/L (98-107); Creatinine, Serum 0.89 mg/dL (0.70-1.30); EST Glomerular Filtration Rate 100 mL/min (>60); Est Glom Filt Rate - Afr Amer 121 mL/min (>60); Estimated Creatinine Clearance 116.33 ml/min; Globulin 2.8 g/dL (2.2-4.2); Glucose 89 mg/dL (74-106); Magnesium 2.1 mg/dL (1.6-2.6); Potassium 4.2 mmol/L (3.5-5.1); Protein, Total 6.3 g/dL (6.4-8.2); Sodium Level 139 mmol/L (136-145)
--- NOTE | 2024-06-24 08:30 | NM_ITS ---
CLINICAL: 39-year-old male with history of intractable right upper quadrant abdominal pain and nausea. RADIONUCLIDE HEPATOBILIARY SCINTIGRAPHY COMPARISON: Abdominal ultrasound report 06/23/2024, CT of the abdomen-pelvis report 06/23/2024 FINDINGS: Following the intravenous administration of 5.7 mCi of 99m Tc Mebrofenin, hepatobiliary images reveal: 1. Relatively prompt and homogeneous radiopharmaceutical concentration is noted by a normal sized liver. No parenchymal defects are identified. 2. Gallbladder activity is identified at 10 minutes post radiopharmaceutical administration. 3. Small intestinal tract is observed at 45 minutes following tracer injection. 4. Washout of the radiopharmaceutical by the hepatic parenchyma appears qualitatively normal. Cholecystokinin (0.02 ug/kg) was administered intravenously over a 30-minute period. The post CCK gallbladder ejection fraction calculated at 20 minutes following Cholecystokinin administration was noted to be 72.0 % (normal greater than 35%). During 30 minutes of post CCK imaging, there is no scintigraphic evidence of reflux of the radiotracer into the common hepatic duct or refilling of the gallbladder. There is evidence of post cholecystokinin duodenal-gastric reflux. NM/Hepatobilliary Img w/Pharm Int IMPRESSION: 1. A gallbladder ejection fraction calculated to be greater than 35% following the administration of Cholecystokinin makes the probability of functional hepatobiliary disease (gallbladder and/or sphincter of Oddi dyskinesia) and/or organic hepatobiliary disease (chronic acalculous cholecystitis and/or cystic duct syndrome) to be low. (Migue Hooker et al, Journal of Nuclear Medicine 32:1695, 1991). 2. 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 Electronically Signed: Eh Montes DO at 11:25 EDT ,
[2024-06-24 08:31] LABS: Absolute Lymphocyte Count 1.88 X10^3/uL (0.83-4.51); Basophil# 0.05 X10^3/uL; Basophil% 0.9 % (0-1); Eosinophil# 0.23 X10^3/uL; Hematocrit 42.9 % (40-54); Hemoglobin 14.3 g/dL (13.0-16.5); Lymphocyte # 1.88 X10^3/ul (0.83-4.51); Lymphocyte % 32.8 % (19-41); Mean Corp Hgb Conc 33.3 g/dL (32-36); Mean Platelet Vol. 9.6 fl (6.2-12.0); Monocyte# 0.56 X10^3/uL; Monocyte% 9.8 % (0-10); NRBC Flagged by Analyzer 0 % (0-5); Neutrophil % 52.2 % (47-70); Platelet Count 231 K/mm3 (150-450); RBC Distribution Width CV 11.5 % (11.6-14.6); RBC Distribution Width SD 36.7 fl (35.1-43.9); Red Blood Count 4.93 M/mm3 (4.6-6.2); White Blood Count 5.7 K/mm3 (4.4-11.0)
[2024-06-24] MEDS: HYDROmorphone 1 MG/ML Syringe IV ×2 (10:36→20:18)
[2024-06-24] MEDS: 0.9% Saline Lock 10 ML Syringe IV (10:37)
[2024-06-24] MEDS: Pantoprazole Sodium 40 MG in 0.9% Normal Saline (100mL MB+) 100 ML 330 MG IV (10:37)
--- NOTE | 2024-06-24 11:27 | PCM.PN.HOSP ---
Reason for Visit Reason for Visit: Diagnoses Calculus of bile duct without cholangitis or cholecystitis without obstruction (06/23/24) Other specified diseases of gallbladder (06/23/24) Right upper quadrant pain (06/23/24) Nausea with vomiting, unspecified (06/23/24) Other specified symptoms and signs involving the digestive system and abdomen (06/23/24) Subjective Subjective Saw patient at bedside later this morning after his HIDA scan was done, parents and girlfriend were present. Patient was mildly fatigued appearing but otherwise sitting up fairly comfortably in bed, in no acute distress. He tolerated the HIDA scan without issue. He had not tried any clear liquids yesterday. He denied any current pain or nausea but has had significant difficulty with keeping any food down over the past few days. Denies any other new concerns today. Objective Data Objective Data Vital Signs: Vital Signs Temp Pulse Resp BP Pulse Ox O2 Del Method 97.4 F L 53 L 18 118/74 97 Room Air 06/24/24 08:10 06/24/24 08:10 06/24/24 08:10 06/24/24 08:10 06/24/24 08:10 06/24/24 08:10 Oxygen Delivery Method Room Air Weight: 75.296 kg Body Mass Index (BMI) 21.3 Intake & Output: Intake and Output for Last 24 Hours 06/22/24 06/23/24 06/24/24 23:59 23:59 23:59 Intake Total 1000 / 1000 1371.66 / 1371.66 Balance 1000 / 1000 1371.66 / 1371.66 Lab / Micro Data 06/24/24 06:52 06/24/24 06:52 Labs: Laboratory Results - last 24 hr 06/23/24 12:54: WBC 6.5, RBC 5.58, Hgb 15.9, Hct 47.9, MCV 85.8, MCH 28.5, MCHC 33.2, RDW Std Deviation 35.8, RDW Coeff of Feilcita 11.5 L, Plt Count 252, MPV 9.3, Immature Gran % (Auto) 0.200, Neut % (Auto) 56.8, Lymph % (Auto) 30.6, [place] % (Auto) 9.9, Eos % (Auto) 1.9, Baso % (Auto) 0.6, Absolute Neuts (auto) 3.7, Absolute Lymphs (auto) 1.98, Nucleated RBC % 0, Total Bilirubin 0.60, Direct Bilirubin 0.16, AST 10 L, ALT 25, Alkaline Phosphatase 98, Total Protein 7.3, Albumin 4.1, Globulin 3.2, Lipase 32 06/24/24 06:52: WBC 5.7, RBC 4.93, Hgb 14.3, Hct 42.9, MCV 87.0, MCH 29.0, MCHC 33.3, RDW Std Deviation 36.7, RDW Coeff of Felicita 11.5 L, Plt Count 231, MPV 9.6, Immature Gran % (Auto) 0.300, Neut % (Auto) 52.2, Lymph % (Auto) 32.8, [place] % (Auto) 9.8, Eos % (Auto) 4.0, Baso % (Auto) 0.9, Absolute Neuts (auto) 3.0, Absolute Lymphs (auto) 1.88, Nucleated RBC % 0, Sodium 139, Potassium 4.2, Chloride 105, Carbon Dioxide 29.0, Anion Gap 5, BUN 14, Creatinine 0.89, Estim Creat Clear Calc 116.33, Est GFR (MDRD) Af Amer 121, Est GFR (MDRD) Non-Af 100, BUN/Creatinine Ratio 15.7, Glucose 89, Calcium 9.1, Phosphorus 3.0, Magnesium 2.1, Total Bilirubin 0.60, AST 9 L, ALT 20, Alkaline Phosphatase 86, Total Protein 6.3 L, Albumin 3.5, Globulin 2.8, Albumin/Globulin Ratio 1.2, TSH 2.650 Radiography Diagnostic Testing: Radiology Impression Gallbladder Ultrasound 06/23/24 13:57 IMPRESSION: Positive sonographic Qeuen''s sign. No evidence of cholelithiasis. Electronically Signed: Darryl Ayala MD at 15:17 EDT , Abdomen/Pelvis CT 06/23/24 15:42 IMPRESSION: No evidence for small bowel obstruction , acute appendicitis or other acute abnormality Electronically Signed: Madhav De Anda MD at 16:30 EDT , Hepatobiliary Scan Nuclear Medicine 06/24/24 08:30 IMPRESSION: 1. A gallbladder ejection fraction calculated to be greater than 35% following the administration of Cholecystokinin makes the probability of functional hepatobiliary disease (gallbladder and/or sphincter of Oddi dyskinesia) and/or organic hepatobiliary disease (chronic acalculous cholecystitis and/or cystic duct syndrome) to be low. (Migue Hooker et al, Journal of Nuclear Medicine 32:1695, 1990). 2. 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 Electronically Signed: Eh Montes, at 11:25 EDT , Physical Exam Const alert, oriented x3, no apparent distress and average body habitus General Appearance: cooperative and comfortable HEENT normocephalic, head/scalp atraumatic, hearing grossly normal bilaterally, nasal mucous membranes and turbinates normal and moist oral mucous membranes Eyes PERRL, EOMs intact bilaterally and conjunctivae normal Neck full ROM Chest inspection of chest normal Resp normal respiratory effort, normal air movement, no use of accessory muscles and clear to auscultation bilaterally Cardio regular rate, regular rhythm, no murmurs and peripheral pulses 2+ throughout GI normal to inspection, nondistended, normoactive bowel sounds, soft to palpation, non-tender and non-distended Back/Spine normal ROM Extremity normal to inspection, full ROM and no pedal edema Skin no rashes or lesions noted Neuro no focal motor deficits and no sensory deficits noted Speech: speech normal Psych mental status grossly normal Assessment & Plan Assessment/Plan (1) Right upper quadrant abdominal pain with positive Queen Sign: PLAN: Plan Patient is a 39-year-old male who presented [facility] ED on 06/23/2024 with ongoing right upper quadrant pain and intractable nausea and vomiting. 1. Chronic right upper quadrant pain with positive Queen sign and intractable nausea/vomiting ? GI consulted. Unclear etiology at this point. CT abdomen pelvis on admit showed no significant acute abnormalities. Right upper quadrant ultrasound showed a positive sonographic Queen sign but no gallbladder distention or other gallbladder issues. LFTs unremarkable. HIDA scan on 06/24 was unremarkable. Continue clear liquid diet for now, appreciate GI recs. Continue scopolamine patch, Zofran as needed, Dilaudid as needed and Toradol as needed.. Continue IV PPI for now. 2. Poor p.o. intake ? Nutrition consulted. Suspect malnutrition due to ongoing poor p.o. intake secondary to above. May need supplements when full p.o. intake can be reestablished. 3. Chronic low back pain ? Continue outpatient follow-up. DVT prophylaxis: Lovenox CODE STATUS: Full code, verified Expected disposition: Home, TBD Total clinical time spent by myself addressing the patient's medical issues, reviewing all the data, and collaborating with patient's care team: 35 minutes. Charges/Coding Visit Charges Inpatient E&M: 22376 Subs Hosp L2
[2024-06-24 14:14] VITALS: BP 123/77; PULSE 57; RESP 18; TEMP 36.6; O2SAT 97
--- NOTE | 2024-06-24 17:49 | EX.PCM.CON.G ---
HPI Consult Data Date of Consult: 06/24/24 HPI Narrative Reason for Consultation: Abdominal pain HPI Narrative: ANDRES CASTRO, is a 39 M who presented to the emergency department at [facility] on 06/23/2024 due to ongoing issues with right upper quadrant pain and intractable nausea and vomiting. He has been having ongoing issues with right upper quadrant pain that have progressively getting worse over the last 9 months. Initially his symptoms only occurred after eating fatty meal like Erickson[employer] but as of late he is vomiting just about on anything including water and liquids. He was seen in the emergency department on 06/19/2024 for symptoms of biliary colic and his labs were overall unremarkable at that time however his ultrasound of his right upper quadrant revealed a positive sonographic Queen sign as well as sludge in the gallbladder with gallbladder distention. The case was discussed with Dr. Carvajal who was on-call for surgery at that time and follow-up appointment was made for 06/25/[address] Carvajal in his office for further evaluation for the need of cholecystectomy. Unfortunately his symptoms have been persistent to the point where he is not able to keep an toast or fluids and has had ongoing worsening pain so he represented to the emergency department today. At home, he is taking p.o. morphine for this and is on as needed Zofran for his nausea but not getting any relief. His last meal was Sunday evening and was smaller than his typical meals. His does report that he has been having coughing after he eats for significant period of time for some time as well. Vital signs on presentation showed a temperature of 98, heart rate 98, respiratory rate 16, blood pressure 121/75 and pulse ox was 98% on room air. CBC was completely unremarkable. Chemistry panel was unremarkable. LFTs were unremarkable with normal bilirubin normal AST and normal ALT. Lipase was normal at 32. Repeat ultrasound of the right upper quadrant was performed and showed a repeat positive sonographic Queen sign with no gallbladder distention, no gallbladders and no pericholestatic fluid with normal common bile duct dimensions. CT of the abdomen pelvis was also performed which demonstrated no significant acute abnormalities. You underwent HIDA scan yesterday: COMPARISON: Abdominal ultrasound report 06/23/2024, CT of the abdomen-pelvis report 06/23/2024 FINDINGS: Following the intravenous administration of 5.7 mCi of 99m Tc Mebrofenin, hepatobiliary images reveal: 1. Relatively prompt and homogeneous radiopharmaceutical concentration is noted by a normal sized liver. No parenchymal defects are identified. 2. Gallbladder activity is identified at 10 minutes post radiopharmaceutical administration. 3. Small intestinal tract is observed at 45 minutes following tracer injection. 4. Washout of the radiopharmaceutical by the hepatic parenchyma appears qualitatively normal. Cholecystokinin (0.02 ug/kg) was administered intravenously over a 30-minute period. The post CCK gallbladder ejection fraction calculated at 20 minutes following Cholecystokinin administration was noted to be 72.0 % (normal greater than 35%). During 30 minutes of post CCK imaging, there is no scintigraphic evidence of reflux of the radiotracer into the common hepatic duct or refilling of the gallbladder. There is evidence of post cholecystokinin duodenal-gastric reflux. [facility] Medical History (Updated 06/23/24 @ 18:[address] Yajaira Orozco DO) Chronic low back pain with sciatica COVID-19 Chronic low back pain Medical History no medical history Home Medications ?Medication ?Instructions ?Recorded ?Last Taken ?Type morphine 15 mg immediate release 15 mg PO Q8H PRN pain 5 days #15 06/19/24 06/23/24 Rx tablet tabs ondansetron 4 mg disintegrating 4 mg PO Q8H PRN PRN Nausea #10 tabs 06/19/24 06/23/24 Rx tablet Allergy/AdvReac Type Severity Reaction Status Date / Time amoxicillin (Amoxicillin) Allergy Rash Verified 06/23/24 12:53 hydrocodone (From Vicodin) Allergy Shortness Verified 06/23/24 12:53 of breath,rash Family History (Updated 06/23/24 @ 18:[address] Yajaira Orozco DO) Other Gallbladder disease Surgical History Previous back surgery Social History (Updated 06/23/24 @ 18:[address] Yajaira Orozco DO) household members: spouse and children Smoking Status: Never smoker alcohol intake: never substance use type: does not use ROS Review of Systems ROS Unobtainable: Denies due to encephalopathy, due to endotracheal tube, due to mental condition, due to mental status or other Constitutional Constitutional: Reports change in weight; Denies anorexia, chills, fatigue, fever(s), malaise, night sweats, weakness or other Eyes Eyes: Denies blurry vision, change in eye color, change in vision, discharge from eye(s), double vision, erythema, eye pain, loss of vision or other ENT HEENT: Denies abnormal hearing, dysphagia, ear pain, epistaxis, headache(s), hearing loss, nasal congestion, nasal discharge, post nasal drip, sinus pressure, sore throat or other Cardiovascular Cardiovascular: Denies chest pain, claudication, dyspnea on exertion, edema, lightheadedness, orthopnea, palpitations, paroxysmal nocturnal dyspnea, rapid heart rate, syncope or other Respiratory/Chest Respiratory/Chest: Denies cough, dyspnea, excessive phlegm production, hemoptysis, productive cough, shortness of breath at rest, shortness of breath with exertion, wheezing or other Gastrointestinal Gastrointestinal: Reports abdominal pain, nausea and vomiting; Denies coffee ground emesis, constipation, diarrhea, dyspepsia, hematemesis, hematochezia, loose stools, melena or other Genitourinary Genitourinary: Denies burning urination, difficulty urinating, dysuria, hematuria, nocturia, urinary frequency, urinary hesitancy, urinary incontinence, urinary urgency or other Musculoskeletal Musculoskeletal: Denies arthralgias, back pain, joint pain, joint stiffness, joint swelling, myalgias, neck pain or other Neurologic Neurologic: Denies abnormal gait, abnormal speech, confusion, disequilibrium, dizziness, focal weakness, headache(s), numbness, paresthesias, seizure-like activity, seizures, syncope, tingling, tremor(s) or other Psychiatric Psychiatric: Denies anxiety, depression, homicidal ideation, suicidal ideation or other Endocrine Endocrinology: Denies change in body appearance, cold intolerance, excessive sweating, heat intolerance, polydipsia, polyuria or other Hematologic/Lymphatic Hematologic/Lymphatic: Denies anemia, easy bleeding, easy bruising, lymphadenopathy or other Allergic/Immunologic Allergic/Immunologic: Denies rhinitis, hives, eczemia, asthma or other Physical Exam Const alert, oriented x3 and no apparent distress; Negative for average body habitus, healthy appearing or well nourished Constitutional Narrative: 8, middle-aged, white male, sitting up in bed, currently appears comfortable, does not appear toxic, at bedside General Appearance: cooperative HEENT normocephalic, head/scalp atraumatic, hearing grossly normal bilaterally and moist oral mucous membranes HEENT Narrative: Dentition is good for age, Mallampati is 2, no thrush Resp normal respiratory effort, no retractions, no use of accessory muscles and clear to auscultation bilaterally Auscultation: Negative for rales, rhonchi or wheezes Cardio regular rate, regular rhythm, S1 normal heart sound, S2 normal heart sound, no murmurs, no rub, no gallops and no clicks GI normal to inspection, nondistended, normoactive bowel sounds, soft to palpation and non-tender Extremity no clubbing, cyanosis or edema Extremity Narrative: Pedal pulses are 2+, radial pulses are 2+ Neuro oriented x3, moves all extremities and no focal motor deficits Speech: speech normal Psych affect normal Psych Narrative: Very pleasant, interacts appropriately Lab / Micro Data 06/24/24 06:52 06/24/24 06:52 Labs: Laboratory Results - last 24 hr 06/24/24 06:52: WBC 5.7, RBC 4.93, Hgb 14.3, Hct 42.9, MCV 87.0, MCH 29.0, MCHC 33.3, RDW Std Deviation 36.7, RDW Coeff of Felicita 11.5 L, Plt Count 231, MPV 9.6, Immature Gran % (Auto) 0.300, Neut % (Auto) 52.2, Lymph % (Auto) 32.8, [place] % (Auto) 9.8, Eos % (Auto) 4.0, Baso % (Auto) 0.9, Absolute Neuts (auto) 3.0, Absolute Lymphs (auto) 1.88, Nucleated RBC % 0, Sodium 139, Potassium 4.2, Chloride 105, Carbon Dioxide 29.0, Anion Gap 5, BUN 14, Creatinine 0.89, Estim Creat Clear Calc 116.33, Est GFR (MDRD) Af Amer 121, Est GFR (MDRD) Non-Af 100, BUN/Creatinine Ratio 15.7, Glucose 89, Calcium 9.1, Phosphorus 3.0, Magnesium 2.1, Total Bilirubin 0.60, AST 9 L, ALT 20, Alkaline Phosphatase 86, Total Protein 6.3 L, Albumin 3.5, Globulin 2.8, Albumin/Globulin Ratio 1.2, TSH 2.650 Imaging Radiology Impression Hepatobiliary Scan Nuclear Medicine 06/24/24 08:30 IMPRESSION: 1. A gallbladder ejection fraction calculated to be greater than 35% following the administration of Cholecystokinin makes the probability of functional hepatobiliary disease (gallbladder and/or sphincter of Oddi dyskinesia) and/or organic hepatobiliary disease (chronic acalculous cholecystitis and/or cystic duct syndrome) to be low. (Migue Hooker et al, Journal of Nuclear Medicine 32:1695, 1991). 2. 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 Electronically Signed: Eh Montes DO at 11:25 EDT , Assessment & Plan Assessment/Plan (1) Right upper quadrant abdominal pain with positive Queen Sign: (2) Nausea & vomiting: (3) Biliary colic symptom: (4) Sludge in gallbladder: PLAN: Plan 39-year-old gentleman with no significant past medical history currently with intractable abdominal pain associated with nausea vomiting. The differential diagnosis does include gastroparesis, severe duodenal gastric reflux, Type III sphincter of Oddi syndrome, celiac disease, irritable bowel syndrome. Recommend upper endoscopy to evaluate upper GI tract along with biochemical workup. He was explained alternatives, risk, benefits include not withstanding bleeding, infection, sepsis, perforation, need for emergent urgent . He will have an ASA of 3. Charges/Coding Visit Charges Inpatient E&M: 93650 Init Hosp L3
[2024-06-24 20:17] VITALS: BP 119/82; PULSE 61; RESP 16; TEMP 36.7; O2SAT 98
[2024-06-24] MEDS: Scopolamine 1mg/72hr Patch 1 PATCH TD (22:40)
[2024-06-25] VITALS (10 sets, daily range): BP systolic 104–140; BP diastolic 60–122; PULSE 52–85; RESP 16–18; TEMP 36.1–36.8; O2SAT 93–99
--- NOTE | 2024-06-25 07:30 | EGD_PTH ---
PATIENT: ANDRES CASTRO LOC: MS3 U#:[id number] AGE/SX: 39/M ROOM: MN321 RE06/23/[address]: Dr. Chad Karimi DO : 1985 BED: 1 DIS: 06/26/2024 SPEC #: [id number] RECD: 06/25/24 09:33 STATUS: ASUNCION REDanielle #: [id number] EMILIA: 06/25/24 07:[address]: Troy Porras DEPT: SURGICAL PATHOLOGY RECD BY: Aaron Lainez ENTERED: 06/25/24 14:08 SP TYPE: EGD BIOPSY OT DR: Dr. Chad Karimi, DO Dr. Yajaira Orozco, DO No Primary Care Phys Tissues: A - Duodenum, NOS B - Gastric mucous membrane C - Esophagus, NOS Procedures: Special Stain Group I Surgery Specimen Level IV Alcian Blue/PAS (control) HEADER OPERATION: EGD with biopsy PRE-OP DIAGNOSIS: Right upper quadrant abdominal pain with positive Queen sign, nausea/vomiting, biliary colic symptom, sludge in gallbladder TISSUE SUBMITTED: A- Duodenum biopsy, B- Gastric body biopsy, C- Distal esophagus biopsy MICROSCOPIC DIAGNOSIS A. Duodenum, biopsy: Mild non-specific chronic inflammation. B. Gastric body, biopsy: Chronic gastritis . See comment. C. Distal esophagus, biopsy: Fragments of gastric mucosa with mild chronic inflammation. No evidence of goblet cell metaplasia. See comment. 06/26/2024 COMMENT B. The results of immunohistochemistry for Helicobacter pylori will be reported separately ([id number]). C. Alcian blue/PAS stain with matched control supports the above diagnosis. Case has been reviewed in consultation with Dr. Whitt who concurs with the above diagnosis. IDC:SJ MICROSCOPIC DESCRIPTION Slides are reviewed. GROSS DESCRIPTION A. Received in fixative is one container labeled with the patient's name and designated Duodenum biopsy. The specimen consists of multiple irregular fragments of light bell soft tissue that in aggregate measure 1.5 x 0.3 x 0.1 cm. The specimen is totally submitted in one cassette. B. Received in fixative is one container labeled with the patient's name and designated Gastric body biopsy. The specimen consists of multiple irregular fragments of light bell soft tissue that in aggregate measure 1.5 x 0.2 x 0.1 cm. The specimen is totally submitted in one cassette. C. Received in fixative is one container labeled with the patient's name and designated Distal esophagus biopsy. The specimen consists of multiple irregular fragments of light bell soft tissue that in aggregate measure 0.7 x 0.4 x 0.1 cm. The specimen is totally submitted in one cassette. SJ.mr 06/25/2024 TC:3 CPT:17977y0,63146
--- NOTE | 2024-06-25 07:30 | IMM_PTH ---
PATIENT: ANDRES CASTRO LOC: MS3 U#:[id number] AGE/SX: 39/M ROOM: KS321 RE06/23/[address]: Dr. Chad Karimi DO : 1985 BED: 1 DIS: 06/26/2024 SPEC #: [id number] RECD: 06/25/24 10:56 STATUS: ASUNCION REQ #: [id number] EMILIA: 06/25/24 07:[address]: Troy Porras DEPT: IMMUNOHISTOCHEMISTRY RECD BY: Dave Kirkpatrick ENTERED: 06/25/24 10:57 SP TYPE: IMMUNO OTHR DR: Dr. Chad Karimi, DO Dr. Yajaira Orozco, DO No Primary Care Phys Tissues: B - Gastric mucous membrane Procedures: H Pylori (initial) PHYSICIAN & INSTITUTION [place] [id number] SPECIMEN INFORMATION: Tissue Source: B- Gastric body biopsy Clinical Info: Right upper quadrant abdominal pain with positive Queen sign, nausea/vomiting, biliary colic symptom, sludge in gallbladder Specimen Number: [id number] CPT code: 78950 METHODOLOGY: Deparaffinized sections of prefer/formalin-fixed tissue or PAP/DQ stained slides are incubated with monoclonal/polyclonal antibodies/oligonucleotide probes. Localization is made via biotin free immunoperoxidase method. Appropriate controls are performed and reacted as expected. Results on target cell population are indicated in the following table: RESULTS: ANTIBODY / CLONE RESULT Block B H Pylori (polyclonal) negative These tests were developed and their performance characteristics determined by [facility]. They may not have been cleared or approved by the U.S. Food and Drug Administration. The FDA has determined that such clearance or approval is not necessary. The above immunohistochemical/dualISH markers are ordered and reviewed by the Pathologist. INTERPRETATION: B. Gastric body, biopsy: Negative for Helicobacter pylori organisms. PIERRE/ 06/25/2024
[2024-06-25] MEDS: Lactated Ringers 1,000 ML 15 ML IV (07:42)
--- NOTE | 2024-06-25 07:46 | PCM.PRE.AN2 ---
ASA Classification* ASA Classification ASA Classification: 2 Assessment & Plan Anesthesia* Anesthesia Assessment Anesthesia Assessment: Discussed sedation and/or anesthesia options, risks, benefits, and alternatives with patient/parents/legal guardian/POA. Questions invited. The patient/parents/legal guardian/POA seems to understand and agrees to proceed with anesthesia plan. Reviewed the physical assessment, medical history, allergy history and patient home medications list prior to surgery/procedure/anesthetic and documented any changes. Performed airway and anesthesia risk assessments. Anesthesia Type Anesthesia Type: MAC Anesthesia Focused Assessment* Temperature: 97.8 F Pulse Rate: 52 Blood Pressure: 104/60 Respiratory Rate: 16 Pulse Ox: 98 Airway Assessment Mouth opens: >3 cm Mallampati Score: II Focused Labs Anesthesia Preop lab: CBC WBC 5.7 K/mm3 (4.4-11.0) 06/24/24 06:52 RBC 4.93 M/mm3 (4.6-6.2) 06/24/24 06:52 Hgb 14.3 g/dL (13.0-16.5) 06/24/24 06:52 Hct 42.9 % (40-54) 06/24/24 06:52 Plt Count 231 K/mm3 (150-450) 06/24/24 06:52 CHEMISTRY Potassium 4.2 mmol/L (3.5-5.1) 06/24/24 06:52 Sodium 139 mmol/L (136-145) 06/24/24 06:52 Magnesium 2.1 mg/dL (1.6-2.6) 06/24/24 06:52 Phosphorus 3.0 mg/dL (2.5-4.9) 06/24/24 06:52 BUN 14 mg/dL (7-18) 06/24/24 06:52 Creatinine 0.89 mg/dL (0.70-1.30) 06/24/24 06:52 Glucose 89 mg/dL (74-106) 06/24/24 06:52 TSH 2.650 uIU/mL (0.358-3.740) 06/24/24 06:52 COAG PT 13.0 SECONDS (11.9-14.4) 08/06/13 11:54 Pre-Assessment Diagnosis/Proposed Procedure Planned Operative Procedure(s): EGD Anesthesia History 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 When Was Last Pacemaker Check QUESTION #4 FULL TEXT: You/Your Family Experience fever (hyperthermia) with Anesthesia Last Oral Intake Last Oral intake: Last Oral Intake NPO since Meds taken in AM with sips of water? 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 Has anyone observed you stop No 06/23/24 19:36 breathing during sleep? STOP Results Negative 06/23/24 19:36 QUESTION #5 FULL TEXT : Do you snore loudly (louder than talking or can be heard through closed doors)? 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 Specify any problems Hx of Preganancy in last 3 N/A 06/23/24 19:36 Months Nurse Filling Out Transfusion LSMITH 06/23/24 19:36 & Questions: Date: 06/23/24 06/23/24 19:36 Time: 19:42 06/23/24 19:36 Patient unable to answer at this time (ie. 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: /Reproductive Hx- brake operator heavy duty Hx Now Gestational Age (in weeks): EDC: Hx Hx Para Hx Section SAB Active Medications Active Medications: Current Medications Generic Name Dose Route Start Last Admin Trade Name Freq PRN Reason Stop Dose Admin Enoxaparin Sodium 40 mg 06/24/24 10:00 06/24/24 11:22 Enoxaparin 40 Mg/0.4 Ml Syringe SC Not Given DAILY GARDENIA Hydromorphone HCl 0.5 - 1 mg 06/23/24 19:34 06/24/24 20:18 Hydromorphone 1 Mg/Ml Syringe IV 1 mg Q3H PRN PRN Administration Pain Score 6-10 Pantoprazole Sodium 40 mg/ 110 mls @ 330 mls/hr 06/24/24 10:00 06/24/24 10:57 Sodium Chloride IV Infused Q24 GARDENIA Infusion Lactated Ringer's 1,000 mls @ 15 mls/hr 06/25/24 07:45 06/25/24 07:42 IV 15 mls/hr .Q48H GARDENIA Administration Ketorolac Tromethamine 15 mg 06/23/24 19:34 06/24/24 02:27 Ketorolac 15 Mg/Ml Vial IV 06/25/24 19:35 15 mg Q6H PRN PRN Administration Pain Score 1-10 Melatonin 3 mg 06/23/24 19:34 Melatonin 3 Mg Tablet PO QHS PRN PRN INSOMNIA Ondansetron HCl 4 mg 06/23/24 19:34 Ondansetron 4 Mg/2 Ml Vial IV Q8H PRN PRN NAUSEA/VOMITING Prochlorperazine Edisylate 5 mg 06/23/24 19:34 Prochlorperazine 10 Mg/2 Ml Vial IV Q4H PRN PRN Breakthrough nausea/vomiting Scopolamine HBr 1 patch 06/23/24 19:34 06/24/24 22:40 Scopolamine 1mg/72hr Patch TD 1 applic Q3D GARDENIA Administration Senna/Docusate Sodium 2 tablet 06/23/24 19:34 Senna/Docusate Sodium 1 Tablet PO BID PRN PRN Constipation Sodium Chloride 10 - 40 ml 06/23/24 19:48 06/24/24 10:37 0.9% Saline Lock 10 Ml Syringe IV 10 ml UD PRN Administration SALINE FLUSH PFSH Medical History Chronic low back pain with sciatica COVID-19 Chronic low back pain Medical History no medical history Home Medications ?Medication ?Instructions ?Recorded ?Last Taken ?Type morphine 15 mg immediate release 15 mg PO Q8H PRN pain 5 days #15 06/19/24 06/23/24 Rx tablet tabs ondansetron 4 mg disintegrating 4 mg PO Q8H PRN PRN Nausea #10 tabs 06/19/24 06/23/24 Rx tablet Allergy/AdvReac Type Severity Reaction Status Date / Time amoxicillin (Amoxicillin) Allergy Rash Verified 06/23/24 12:53 hydrocodone (From Vicodin) Allergy Shortness Verified 06/23/24 12:53 of breath,rash Family History Other Gallbladder disease Surgical History Previous back surgery Social History household members: spouse and children Smoking Status: Never smoker alcohol intake: never substance use type: does not use Review of Systems (Anesthesia) ROS Narrative System reviewed and no additional complaints, except as documented.
--- NOTE | 2024-06-25 08:09 | OP.CCLET_ITS ---
06/25/2024 No Primary Care Physician Re : Upper GI endoscopy procedure for Sheng Porras Dear Care Physician This procedure was performed on Tuesday, June 25, 2024. My impressions and recommendations are as follows: Impressions : - Z-line irregular, 40 cm from the incisors. Biopsied. - Erythematous mucosa in the gastric body. Biopsied. - Chronic duodenitis. Biopsied. Recommendations : - [facility]. - Resume previous diet. - Continue present medications. - Await pathology results. My findings are described in the full procedure note, which is enclosed. If I can be of further assistance, please feel free to contact me at . Sincerely, Troy Porras, 06/25/2024 8:09:00 AM This report has been signed electronically.
--- NOTE | 2024-06-25 08:09 | OP.EGD_ITS ---
Patient Name: Sheng Porras Procedure Date: 06/25/2024 7:52 AM Date of : 1985 Age: 39 Procedure: Upper GI endoscopy Indications: Epigastric abdominal pain, Abdominal pain in the right upper quadrant Providers: Troy Porras DO Medicines: Monitored Anesthesia Care Patient Profile: This is a 39 year old male. Refer to note in patient chart for documentation of history and physical. Patient has symptoms of chronic abdominal cramping, acute right upper quadrant abdominal pain and acute right lower quadrant abdominal pain. Complications: No immediate complications. Procedure: Pre-Anesthesia Assessment: - Prior to the procedure, a History and Physical was performed, and patient medications and allergies were reviewed. The patient is competent. The risks and benefits of the procedure and the sedation options and risks were discussed with the patient. All questions were answered and informed consent was obtained. Patient identification and proposed procedure were verified by the physician in the pre-procedure area. Mental Status Examination: alert and oriented. Airway Examination: normal oropharyngeal airway and neck mobility. Respiratory Examination: clear to auscultation. CV Examination: normal. Prophylactic Antibiotics: The patient does not require prophylactic antibiotics. Prior Anticoagulants: The patient has taken no anticoagulant or antiplatelet agents. ASA Grade Assessment: II - A patient with mild systemic disease. After reviewing the risks and benefits, the patient was deemed in satisfactory condition to undergo the procedure. The anesthesia plan was to use monitored anesthesia care (MAC). Immediately prior to administration of medications, the patient was re-assessed for adequacy to receive sedatives. The heart rate, respiratory rate, oxygen saturations, blood pressure, adequacy of pulmonary ventilation, and response to care were monitored throughout the procedure. The physical status of the patient was re-assessed after the procedure. After obtaining informed consent, the endoscope was passed under direct vision. Throughout the procedure, the patient's blood pressure, pulse, and oxygen saturations were monitored continuously. The gastroscope was introduced through the mouth, and advanced to the second part of duodenum. The upper GI endoscopy was accomplished without difficulty. The patient tolerated the procedure well. Scope In: 7:59:12 AM Scope Out: 8:04:12 AM Total Procedure Duration Time 0 hours 5 minutes 0 seconds Findings: The Z-line was irregular and was found 40 cm from the incisors. Biopsies were taken with a cold forceps for histology. Verification of patient identification for the specimen was done. Estimated blood loss was minimal. Patchy mildly erythematous mucosa without bleeding was found in the gastric body. Biopsies were taken with a cold forceps for histology. Verification of patient identification for the specimen was done. Biopsies were taken with a cold forceps for Helicobacter pylori testing. Verification of patient identification for the specimen was done. Estimated blood loss was minimal. Patchy mild inflammation characterized by congestion (edema) and erythema was found in the duodenal bulb, in the first portion of the duodenum and in the second portion of the duodenum. Biopsies were taken with a cold forceps for histology. Verification of patient identification for the specimen was done. Estimated blood loss was minimal. Impression: - Z-line irregular, 40 cm from the incisors. Biopsied. - Erythematous mucosa in the gastric body. Biopsied. - Chronic duodenitis. Biopsied. Recommendation: - [facility]. - Resume previous diet. - Continue present medications. - Await pathology results. Procedure Code(s): --- Professional --- 23692, Esophagogastroduodenoscopy, flexible, transoral; with biopsy, single or multiple CPT copyright 2021 [employer]. All rights reserved. The codes documented in this report are preliminary and upon wheel presser review may be revised to meet current compliance requirements. Troy Porras DO 06/25/2024 8:09:00 AM This report has been signed electronically. Number of Addenda: 0 Note Initiated On: 06/25/2024 7:52 AM
--- NOTE | 2024-06-25 08:15 | PCM.POST.ANE ---
Anesthesia: Postop Eval I Current Vital Signs Temperature: 97.1 F Pulse Rate: 78 Blood Pressure: 140/82 Respiratory Rate: 16 Pulse Ox: 94 Oxygen Delivery Method: Room Air Assessment Airway patent: Yes Spontaneous unlabored respirations: Yes Mental status: Asleep nausea: No Vomiting: No Anesthesia Complication: No Fluid Hydration Crystalloid volume administer (ml): 500 Total IV fluid infused: 500 Progress Note Anesthesia document: Postop Eval 1 completed: Yes
[2024-06-25] MEDS: Ketorolac 15 MG/ML Vial IV (09:00)
[2024-06-25] MEDS: Ondansetron 4 MG/2 ML Vial IV (09:01)
[2024-06-25] MEDS: proCHLORPERazine 10 MG/2 ML Vial 5 MG IV ×2 (10:09→17:06)
[2024-06-25] MEDS: Pantoprazole Sodium 40 MG in 0.9% Normal Saline (100mL MB+) 100 ML 330 MG IV (10:10)
--- NOTE | 2024-06-25 11:03 | PCM.PN.HOSP ---
Reason for Visit Reason for Visit: Diagnoses Calculus of bile duct without cholangitis or cholecystitis without obstruction (06/23/24) Other specified diseases of gallbladder (06/23/24) Right upper quadrant pain (06/23/24) Nausea with vomiting, unspecified (06/23/24) Other specified symptoms and signs involving the digestive system and abdomen (06/23/24) Subjective Subjective Saw patient at bedside this morning, family members present. Patient had EGD done this morning before I saw him, tolerated this without issue. EGD showed chronic duodenitis. Noted to him that there are several things that could cause this and Dr. Porras will assist in determining further workup going forward. He unfortunately tried to eat breakfast but vomited that up this morning. Switched back to full liquid diet for now. Objective Data Objective Data Vital Signs: Vital Signs Temp Pulse Resp BP Pulse Ox O2 Del Method 96.9 F L 80 16 111/72 96 Room Air 06/25/24 08:25 06/25/24 08:25 06/25/24 08:25 06/25/24 08:25 06/25/24 08:38 06/25/24 08:38 Oxygen Delivery Method Room Air Weight: 75.296 kg Body Mass Index (BMI) 21.3 Intake & Output: Intake and Output for Last 24 Hours 06/23/24 06/24/24 06/25/24 23:59 23:59 23:59 Intake Total 1000 / 1000 2334.99 / 2334.99 400 / 400 Balance 1000 / 1000 2334.99 / 2334.99 400 / 400 Lab / Micro Data 06/24/24 06:52 06/24/24 06:52 Radiography Diagnostic Testing: Radiology Impression Hepatobiliary Scan Nuclear Medicine 06/24/24 08:30 IMPRESSION: 1. A gallbladder ejection fraction calculated to be greater than 35% following the administration of Cholecystokinin makes the probability of functional hepatobiliary disease (gallbladder and/or sphincter of Oddi dyskinesia) and/or organic hepatobiliary disease (chronic acalculous cholecystitis and/or cystic duct syndrome) to be low. (Migue Hooker et al, Journal of Nuclear Medicine 32:1695, 1991). 2. 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 Electronically Signed: Eh Montes DO at 11:25 EDT , Physical Exam Const alert, oriented x3, no apparent distress and average body habitus Constitutional Narrative: Pleasant middle-age male, mildly fatigued appearing, otherwise sitting up fairly comfortably in bed, in no acute distress. Stable. General Appearance: cooperative and comfortable HEENT normocephalic, head/scalp atraumatic, hearing grossly normal bilaterally, nasal mucous membranes and turbinates normal and moist oral mucous membranes Eyes PERRL, EOMs intact bilaterally and conjunctivae normal Neck full ROM Chest inspection of chest normal Resp normal respiratory effort, normal air movement, no use of accessory muscles and clear to auscultation bilaterally Cardio regular rate, regular rhythm, no murmurs and peripheral pulses 2+ throughout GI normal to inspection, nondistended, normoactive bowel sounds, soft to palpation, non-tender and non-distended Back/Spine normal ROM Extremity normal to inspection, full ROM and no pedal edema Skin no rashes or lesions noted Neuro no focal motor deficits and no sensory deficits noted Speech: speech normal Psych mental status grossly normal Assessment & Plan Assessment/Plan (1) Right upper quadrant abdominal pain with positive Queen Sign: PLAN: Plan Patient is a 39-year-old male who presented [facility] ED on 06/23/2024 with ongoing right upper quadrant pain and intractable nausea and vomiting. 1. Chronic right upper quadrant pain with positive Queen sign and intractable nausea/vomiting ? GI following. CT abdomen pelvis on admit showed no significant acute abnormalities. Right upper quadrant ultrasound showed a positive sonographic Queen sign but no gallbladder distention or other gallbladder issues. LFTs unremarkable. HIDA scan on 06/24 was unremarkable. EGD on 06/25 showed erythematous mucosa in gastric body and chronic duodenitis. Multiple possible etiologies for this, appreciate GI assistance with determining further workup. Patient unfortunately had vomiting with regular diet on 06/25, de-escalated back to full liquid diet for now. Continue IV PPI and other medications for pain and nausea as needed. 2. Poor p.o. intake ? Nutrition consulted. Suspect malnutrition due to ongoing poor p.o. intake secondary to above. May need supplements when full p.o. intake can be reestablished. 3. Chronic low back pain ? Continue outpatient follow-up. DVT prophylaxis: Lovenox CODE STATUS: Full code, verified Expected disposition: Home, TBD Total clinical time spent by myself addressing the patient's medical issues, reviewing all the data, and collaborating with patient's care team: 35 minutes. Charges/Coding Visit Charges Inpatient E&M: 52997 Subs Hosp L2
--- NOTE | 2024-06-25 13:38 | PCM.POSTANE2 ---
Anesthesia Postop Eval I Sum Postop Eval Completion status Anesthesia document: Postop Eval 1 completed: Yes Anesthesia Postop Eval I Summary Anesthesia Postop Eval I Summary: Anesthesia Postop Eval I: Assessment Summary Airway patent Yes 06/25/24 08:16 [email or web address] Spontaneous unlabored Yes 06/25/24 08:16 [email or web address] respirations Mental status Asleep 06/25/24 08:16 [email or web address] nausea No 06/25/24 08:16 [email or web address] Vomiting No 06/25/24 08:16 [email or web address] Anesthesia Postop Eval I: Fluid Summary Crystalloid volume administer 500 06/25/24 08:16 [email or web address] (ml) Colloids volume administered ( ml) Blood Product volume administered (ml) Total IV fluid infused 500 06/25/24 08:16 [email or web address] Anesthesia Postop Eval I: Summary Notes Anesthesia Complication No 06/25/24 08:16 [email or web address] Anesthesia Complication Comment: Post-operative progress note Anesthesia: Postop Eval II Evaluation Mental status: Awake Pain Level: 0 nausea: No Vomiting: No
--- NOTE | 2024-06-25 14:29 | CASEMGMT ---
Social Work Pt presented without health insurance. SW met with pt who states he has no concerns with affording needed medications or other financial concerns. CANDELARIO provided pt with written information on prescription assistance, LUCILA Dewitt and Nila Cuellar. DAVID Amos
[2024-06-25] MEDS: HYDROmorphone 1 MG/ML Syringe IV (17:07)
[2024-06-25] MEDS: 0.9% Saline Lock 10 ML Syringe IV (17:22)
[2024-06-26 02:00] VITALS: BP 120/72; PULSE 70; RESP 15; TEMP 36.8; O2SAT 96
[2024-06-26 08:33] VITALS: O2SAT 95
[2024-06-26 09:25] VITALS: BP 140/74; PULSE 102; RESP 18; TEMP 36.6; O2SAT 100
[2024-06-26] MEDS: proCHLORPERazine 10 MG/2 ML Vial 5 MG IV (09:27)
[2024-06-26] MEDS: Enoxaparin 40 MG/0.4 ML Syringe SC ×2 (09:28→09:29)
[2024-06-26] MEDS: Pantoprazole Sodium 40 MG Tablet PO (09:29)
[2024-06-26 09:30] VITALS: PULSE 102
[2024-06-26] MEDS: 0.9% Saline Lock 10 ML Syringe IV (09:30)
--- NOTE | 2024-06-26 12:47 | PCM.PN.HOSP ---
Reason for Visit Reason for Visit: Diagnoses Calculus of bile duct without cholangitis or cholecystitis without obstruction (06/23/24) Other specified diseases of gallbladder (06/23/24) Right upper quadrant pain (06/23/24) Nausea with vomiting, unspecified (06/23/24) Other specified symptoms and signs involving the digestive system and abdomen (06/23/24) Subjective Subjective Saw patient at bedside this morning, parents present. Patient and his parents were quite upset today due to patient's lack of significant improvement and no clear answer for his ongoing GI issues. They were demanding answers for his symptoms and also demanding to speak to Dr. Porras and a general surgeon. I noted to them that Dr. Porras will see them today when able and given no gallbladder issues identified, there is no need for surgical consult at this time. They were unhappy with this answer. Noted we will continue current management and Dr. Porras will address this afternoon. Patient stated he tried eating breakfast morning but vomited his breakfast up. I did call Dr. Porras to notify him of my encounter with patient and family. Objective Data Objective Data Vital Signs: Vital Signs Temp Pulse Resp BP Pulse Ox O2 Del Method 97.9 F 102 H 18 140/74 H 100 Room Air 06/26/24 09:25 06/26/24 09:30 06/26/24 09:25 06/26/24 09:25 06/26/24 09:25 06/26/24 09:25 Oxygen Delivery Method Room Air Weight: 75.296 kg Body Mass Index (BMI) 21.3 Intake & Output: Intake and Output for Last 24 Hours 06/24/24 06/25/24 06/26/24 23:59 23:59 23:59 Intake Total 2334.99 / 2334.99 655 / 655 150 / 150 Balance 2334.99 / 2334.99 655 / 655 150 / 150 Lab / Micro Data 06/24/24 06:52 06/24/24 06:52 Physical Exam Const alert, oriented x3, no apparent distress and average body habitus Constitutional Narrative: Middle-age male, mildly fatigued appearing, otherwise sitting up fairly comfortably in bed, in no acute distress. Stable. General Appearance: cooperative and comfortable HEENT normocephalic, head/scalp atraumatic, hearing grossly normal bilaterally, nasal mucous membranes and turbinates normal and moist oral mucous membranes Eyes PERRL, EOMs intact bilaterally and conjunctivae normal Neck full ROM Chest inspection of chest normal Resp normal respiratory effort, normal air movement, no use of accessory muscles and clear to auscultation bilaterally Cardio regular rate, regular rhythm, no murmurs and peripheral pulses 2+ throughout GI normal to inspection, nondistended, normoactive bowel sounds, soft to palpation, non-tender and non-distended Back/Spine normal ROM Extremity normal to inspection, full ROM and no pedal edema Skin no rashes or lesions noted Neuro no focal motor deficits and no sensory deficits noted Speech: speech normal Psych mental status grossly normal Assessment & Plan Assessment/Plan (1) Right upper quadrant abdominal pain with positive Queen Sign: PLAN: Plan Patient is a 39-year-old male who presented [facility] ED on 06/23/2024 with ongoing right upper quadrant pain and intractable nausea and vomiting. 1. Chronic right upper quadrant pain with positive Queen sign and intractable nausea/vomiting ? GI following. CT abdomen pelvis on admit showed no significant acute abnormalities. Right upper quadrant ultrasound showed a positive sonographic Queen sign but no gallbladder distention or other gallbladder issues. LFTs unremarkable. HIDA scan on 06/24 was unremarkable. EGD on 06/25 showed erythematous mucosa in gastric body and chronic duodenitis. Unclear etiology for these findings at this time. Patient unfortunately continued to have difficulty tolerating diet post EGD. Continue PPI and other medications for pain and nausea as needed. Appreciate further GI recommendations. 2. Poor p.o. intake ? Nutrition consulted. Suspect malnutrition due to ongoing poor p.o. intake secondary to above. Will plan to add supplements to meals when patient able to tolerate regular diet. 3. Chronic low back pain ? Continue outpatient follow-up. DVT prophylaxis: Lovenox CODE STATUS: Full code, verified Expected disposition: Home, TBD Total clinical time spent by myself addressing the patient's medical issues, reviewing all the data, and collaborating with patient's care team: 35 minutes. Charges/Coding Visit Charges Inpatient E&M: 59920 Subs Hosp L2
[2024-06-26 17:04] VITALS: BP 161/86; PULSE 90; RESP 18; TEMP 36.8; O2SAT 100
--- NOTE | 2024-06-26 17:10 | NURSING ---
Pt was agitated with this RN this morning and again just now. Pt wondering when he was going to see Dr. Porras. This RN attempted to talk to pt about plan of care and pt did not wait for this RN to finish talking before interupting. Pt upset with hospital and I
--- NOTE | 2024-06-26 17:14 | DCINST_ITS ---
Discharge Instructions Diet Discharge Diet: No restrictions Activity Discharge Activity: No Restrictions Follow Up Care Test Results: Test results from this visit will be discussed in further detail at your follow-up appointment, if applicable. Discharge Plan Admission Admit Date/Time: 06/23/24 17:25 Primary Reason for Your Visit: Abdominal pain and intractable nausea with vomiting Attending Provider: Chad Karimi Primary Care Provider: Care Physician,No Primary Consulting Providers: Yajaira Orozco Discharge Orders/Prescriptions Prescriptions: New pantoprazole 40 mg Tablet,Delayed Release (Dr/Ec) 40 mg PO BID 30 Days Qty: 60 0RF Continued ondansetron 4 mg tablet,disintegrating 4 mg PO Q8H PRN PRN (Reason: Nausea) Qty: 10 0RF morphine 15 mg tablet 15 mg PO Q8H PRN (Reason: pain) 5 Days Qty: 15 0RF Referrals / Follow Up: Care Physician,No Primary [Primary Care Provider] - Disposition Disposition (needs filled in before D/C Order can be placed): Home, Self Care
--- NOTE | 2024-06-26 17:16 | PCM.DC.SUM ---
Providers Date of Admission: 06/23/24 Date of Discharge: 06/26/24 Primary Care Physician: Dunia Primary Care Phys Consultations 06/24/24 11:40 Consult: Gastroenterology Routine Consulting Provider: Isabelle G[facility] Reason for Consult: intractable N/V w/ RUQ colicky pain of unclear etiology EMERGENT Consult: No MD Notified: Yes Date Notified: 06/24/24 Time Notified: 11:50 Method of Notification: Text Reason For Visit: ABDOMINAL PAIN Diagnosis Discharge Diagnosis (1) Right upper quadrant abdominal pain with positive Queen Sign: Status: Acute Code(s): R10.11 - Right upper quadrant pain; R19.8 - Other specified symptoms and signs involving the digestive system and abdomen Medications at Discharge Home Medications morphine 15 mg immediate release tablet 15 mg PO Q8H PRN pain 5 days #15 tabs 06/19/24 ondansetron 4 mg disintegrating tablet 4 mg PO Q8H PRN PRN Nausea #10 tabs 06/19/24 pantoprazole 40 mg tablet,delayed release 40 mg PO BID 30 days #60 tabs 06/26/24 Hospital Course Operations None Procedures EGD, EKG and - (CT abdomen pelvis, gallbladder ultrasound, HIDA scan) Summary of Care Provided Minutes Spent on Discharge: 35 Hospital Course: Patient is a 39-year-old male who presented [facility] ED on 06/23/2024 with ongoing right upper quadrant pain and intractable nausea and vomiting. Hospital course as noted below. Patient discharged home on 06/26. 1. Chronic right upper quadrant pain with positive Queen sign and intractable nausea/vomiting ? GI followed. CT abdomen pelvis on admit showed no significant acute abnormalities. Right upper quadrant ultrasound showed a positive sonographic Queen sign but no gallbladder distention or other gallbladder issues. LFTs unremarkable. HIDA scan on 06/24 was unremarkable. EGD on 06/25 showed erythematous mucosa in gastric body and chronic duodenitis. Unclear etiology for these findings at this time. Patient unfortunately continued to have difficulty tolerating diet post EGD. Treated with PPI and other medications for pain and nausea as needed. Patient and family were insistent that gallbladder pathology needed to be further considered despite our negative testing. They did not agree with our assessment and treatment plan and requested discharge with plan to seek a second opinion at a different institution. Discharged home on 06/26. 2. Poor p.o. intake ? Nutrition had planned to evaluate the patient once p.o. intake was improving but unfortunately he was discharged prior to this as noted above. Suspected patient has malnutrition due to ongoing poor p.o. intake secondary to above. Recommend he add supplements to meals when able to tolerate regular diet in the future. 3. Chronic low back pain ? Continue outpatient follow-up. Total clinical time spent by myself addressing the patient's medical issues, reviewing all the data, and collaborating with patient's care team: 35 minutes. Physical Exam Const alert, oriented x3, no apparent distress and average body habitus Constitutional Narrative: Middle-age male, mildly fatigued appearing, otherwise sitting up fairly comfortably in bed, in no acute distress. Stable. General Appearance: cooperative and comfortable HEENT normocephalic, head/scalp atraumatic, hearing grossly normal bilaterally, nasal mucous membranes and turbinates normal and moist oral mucous membranes Eyes PERRL, EOMs intact bilaterally and conjunctivae normal Neck full ROM Chest inspection of chest normal Resp normal respiratory effort, normal air movement, no use of accessory muscles and clear to auscultation bilaterally Cardio regular rate, regular rhythm, no murmurs and peripheral pulses 2+ throughout GI normal to inspection, nondistended, normoactive bowel sounds, soft to palpation, non-tender and non-distended Back/Spine normal ROM Extremity normal to inspection, full ROM and no pedal edema Skin no rashes or lesions noted Neuro no focal motor deficits and no sensory deficits noted Speech: speech normal Psych mental status grossly normal Weight / BMI Weight Weight: 75.296 kg Body Mass Index (BMI) 21.3 ABG / Lab / Microbiology Data 06/24/24 06:52 06/24/24 06:52 D/C Instructions Discharge Diet: No restrictions Meaningful Use Info Meaningful Use Meaningful Use Diagnoses (Choose all that apply): None applicable Ischemic Stroke Statin Dosing Therapy Reference: STATIN DOSE THERAPY REFERENCE: * Patients > 75 years receive moderate or high dose statin therapy. * Patients 75 years or YOUNGER should receive HIGH intensity statin dose unless contraindicated. You will be required to document reason for non-treatment if statin daily dose does not meet guidelines. HIGH DOSE STATIN THERAPY DAILY Atorvastatin > than or = to 40 mg Rosuvastatin > than or = to 20 mg Amlodipine + Atorvastatin > than or = to 2.5/40 mg Ezetimibe + Simvastatin 10/80 mg Simvastatin 80mg Discharge Plan Admission Admit Date/Time: 06/23/24 17:25 Primary Reason for Your Visit: Abdominal pain and intractable nausea with vomiting Attending Provider: Chad Karimi Primary Care Provider: Care Physician,No Primary Consulting Providers: Yajaira Orozco Discharge Orders/Prescriptions Prescriptions: New pantoprazole 40 mg Tablet,Delayed Release (Dr/Ec) 40 mg PO BID 30 Days Qty: 60 0RF Continued ondansetron 4 mg tablet,disintegrating 4 mg PO Q8H PRN PRN (Reason: Nausea) Qty: 10 0RF morphine 15 mg tablet 15 mg PO Q8H PRN (Reason: pain) 5 Days Qty: 15 0RF Referrals / Follow Up: Care Physician,No Primary [Primary Care Provider] - Disposition Disposition (needs filled in before D/C Order can be placed): Home, Self Care Charges/Coding Visit Charges Inpatient E&M: 29138 Disch Hosp >30min
--- NOTE | 2024-06-26 17:38 | EX.PCM.PN.GI ---
Subjective Subjective I tried to talk to the patient and his mom on the phone at the bedside and explained to him the findings from his upper endoscopy. I also explained to him that the findings on the endoscopy did not explain his pain. I asked him was a similar to the pain he experienced back in 2012 where he underwent colonoscopy with Dr. Sherman and he was discovered to have ischemic colitis. He says now this pain is completely different and is around the area of his gallbladder. I told him that his findings on his imaging and with blood work does not indicate gallbladder disease. I went over the pictures on the CAT scan and his imaging with the patient and his father at the bedside for over 45 minutes. Objective Data Objective Data Vital Signs: Vital Signs Temp Pulse Resp BP Pulse Ox O2 Del Method 98.2 F 90 18 161/86 H 100 Room Air 06/26/24 17:04 06/26/24 17:04 06/26/24 17:04 06/26/24 17:04 06/26/24 17:04 06/26/24 17:04 Oxygen Delivery Method Room Air Weight: 166 lb Body Mass Index (BMI) 21.3 Intake & Output: Intake and Output for Last 24 Hours 06/24/24 06/25/24 06/26/24 23:59 23:59 23:59 Intake Total 2334.99 / 2334.99 655 / 655 150 / 150 Balance 2334.99 / 2334.99 655 / 655 150 / 150 Lab / Micro Data 06/24/24 06:52 06/24/24 06:52 Physical Exam Const alert, oriented x3 and no apparent distress; Negative for average body habitus, healthy appearing or well nourished Constitutional Narrative: No acute distress General Appearance: cooperative HEENT normocephalic, head/scalp atraumatic, hearing grossly normal bilaterally and moist oral mucous membranes HEENT Narrative: Dentition is good for age, Mallampati is 2, no thrush Resp normal respiratory effort, no retractions, no use of accessory muscles and clear to auscultation bilaterally Auscultation: Negative for rales, rhonchi or wheezes Cardio regular rate, regular rhythm, S1 normal heart sound, S2 normal heart sound, no murmurs, no rub, no gallops and no clicks GI normal to inspection, nondistended, normoactive bowel sounds, soft to palpation and non-tender Extremity no clubbing, cyanosis or edema Extremity Narrative: Pedal pulses are 2+, radial pulses are 2+ Neuro oriented x3, moves all extremities and no focal motor deficits Speech: speech normal Psych affect normal Psych Narrative: Very pleasant, interacts appropriately Assessment & Plan Assessment/Plan (1) Right upper quadrant abdominal pain with positive Queen Sign: (2) Nausea & vomiting: (3) Biliary colic symptom: (4) Sludge in gallbladder: PLAN: Plan 39-year-old gentleman with no significant past medical history currently with intractable abdominal pain associated with nausea vomiting. The differential diagnosis does include gastroparesis, severe duodenal gastric reflux, Type III sphincter of Oddi syndrome, celiac disease, irritable bowel syndrome. Recommend upper endoscopy to evaluate upper GI tract along with biochemical workup. He was explained alternatives, risk, benefits include not withstanding bleeding, infection, sepsis, perforation, need for emergent urgent . He will have an ASA of 3. The differential diagnosis for his pain does include IBS, muscle spasm, sphincter of Oddi syndrome. Patient says he wants to sign out AGAINST MEDICAL ADVICE as no one here is helping him. Even though when I sit and talk with him he is laying in bed very comfortably. He says he cannot eat and less he gets antinausea medicine. He became very frustrated and upset and requested to be discharged from the hospital. Charges/Coding Visit Charges Inpatient E&M: 82101 Subs Hosp L3
== END 2024-06-26 17:30 | disposition home or self-care (01) ==
LOC: ED 13:28 → MS3 19:20
PROVIDERS: Internal Medicine Gastroenterology; Admitting Provider Internal Medicine; Emergency Provider Emergency Medicine; Visit Provider Hospitalist
PROC: 0DJ08ZZ Inspection of Upper Intestinal Tract, Via Natural or Artificial Opening Endoscopic (ICD-10-PCS; CPT 43235; principal; 2024-06-25 07:25)
DX: K80.50 Calculus of bile duct without cholangitis or cholecystitis without obstruction (principal); M54.40 Lumbago with sciatica, unspecified side; K29.80 Duodenitis without bleeding; K83.8 Other specified diseases of biliary tract; G89.29 Other chronic pain; Z86.16 Personal history of COVID-19; K29.60 Other gastritis without bleeding; K21.9 Gastro-esophageal reflux disease without esophagitis; R11.2 Nausea with vomiting, unspecified
CPT/HCPCS: 43239; 36415; 74177; 76705; 78227; 80053; 80076; 83690; 83735; 84100; 84443; 85025; 88305; 88312; 88342; 94668; 96361; 96365; 96366; 96372; 96375; 96376; 99221; 99284; A9537; J7120; Q9967; A4216; G0378; J2405; J2805